=== PATIENT | male | born 1995 | race Caucasian/White ===

== ENCOUNTER 2020-09-26 05:53 | Inpatient (IN) ==
--- NOTE | 2020-09-17 14:38 | PAT Medication Instructions ---
Medication Instructions Date of Service September 17, 2020 Home Medications ascorbic acid (vitamin C) 1,000 mg PO HS linaclotide [Linzess] 72 mcg PO QAM melatonin 5 mg PO HS PRN pantoprazole 40 mg PO QAM DO NOT take the morning of surgery linaclotide [Linzess] 72 mcg PO QAM Take morning of surgery With a small sip of water, OTHERWISE NOTHING TO EAT OR DRINK AFTER MIDNIGHT: pantoprazole 40 mg PO QAM Take evening before surgery ascorbic acid (vitamin C) 1,000 mg PO HS melatonin 5 mg PO HS PRN Other Notes If you have any questions please call us at [phone] or [phone] or [phone] or [phone]
--- NOTE | 2020-09-19 08:17 | Anesthesiology Consultation ---
Date of Service September 19, 2020 Assessment & Plan (1) Encounter for pre-operative examination: COVID Status: As of 09/19 assessment, patient denies travel to endemic area, known exposure/sick contacts, or symptoms of COVID19. Patient was COVID + on 08/05/20. Mild symptoms, all resolved. Explained policy of discontinuation of transmission precautions. Patient instructed that they and their household members must follow strict social distancing guidelines, wear a mask in public and avoid travel/events/gatherings for 14 days prior to surgery. Preoperative COVID19 testing completed 09/19 at [facility]. Patient made aware to self-isolate as much as possible between COVID testing and surgery. Unfortunately he will have to work nearly every day between now and surgery. He works at [employer] and reports the employees are spread out and stay away from each other, have little interaction, and wear masks. Advised to be extra conscientious and especially avoid others when unmasked to eat. Chart Review Chart Review: Acceptable Risk for Surgery and Patient seen in Pre Admission Testing Teaching & Discussion Instructed NPO after midnight before surgery, except medications with 15 cc of water. Medication instructions provided according to the [facility] guidelines. History Surgery Operation Date: 09/26/20 07:30 Proposed Procedures p Robotic Right Partial Nephrectomy Assisted - Carlos Pereyra MD Height/Weight Height: 6 ft Weight: 108.5 kg Allergies Allergy/AdvReac Type Severity Reaction Status Date / Time No Known Allergies Allergy Unverified 09/13/20 08:08 Medications Home Medications Medication Instructions Recorded Confirmed Last Taken ascorbic acid (vitamin C) [Vitamin 1,000 mg PO HS 09/13/20 09/13/20 Unknown C] linaclotide [Linzess] 72 mcg PO QAM 09/13/20 09/13/20 Unknown melatonin 5 mg PO HS PRN 09/13/20 09/13/20 Unknown pantoprazole 40 mg PO QAM 09/13/20 09/13/20 Unknown Past Medical History Medical History Asthma as a child -- no problems currently. Gastritis History of COVID-19 tested 08/05/20 at [facility] --> loss of smell and taste, mild sob for 1 day. no other symptoms. no hospitalization. no problems currently. Irritable bowel syndrome with constipation Exercise / Class Metabolic Activity II 4-5 Yardwork/Stairs/Walk up hill Past Family History Family History Father Pancreatic cancer Other No family history of adverse response to anesthesia Denies family history of Crohn's disease Colorectal cancer Ulcerative colitis Past Surgical History Surgical History H/O colonoscopy (~2015) Dr. Espinal at [facility] History of esophagogastroduodenoscopy (EGD) [place] teeth extracted Past Anesthesia History No Hx of Anesthesia Complications and No Family Hx of Anesthesia Complications History of PONV No Hx of PONV and No Hx of Motion Sickness Social History Smoking Status: Former smoker tobacco type: cigarettes and smokeless tobacco Do You Dip or Chew Tobacco: Yes (nicotine pouches daily (advised)) Smoking End Date: 2018 Hx Alcohol Use: Yes (social) alcohol intake frequency: a few times a month Hx Substance Use: No substance use type: does not use Review of Systems Pt denies any recent chest pain, shortness of breath, palpitations, cough, fever, URI, or uncontrolled acid reflux. Physical Exam Vital Signs BP: 119/81 P: 85bpm SPO2: 98% RA T: 99.0 F R: 12 ENMT Mouth: + chipped teeth; no dental restorations and no loose teeth Thyromental Distance: > or= 3.5 Finger Breadths Mallampati Class: I Neck normal visual inspection and + facial hair (medium length barrientos, pt amenable to shaving); neck extension not limited Respiratory normal respiratory effort, lungs clear to auscultation Cardiovascular RRR, no murmur, no edema Testing Laboratory Results 09/19/20 08:34 09/19/20 08:34 Urine Color Yellow 09/19/20 08:34 Urine Appearance Clear (Clear) 09/19/20 08:34 Urine pH 7.0 (4.5-7.5) 09/19/20 08:34 Ur Specific [place] 1.021 (1.000-1.030) 09/19/20 08:34 Urine Protein Negative (Negative) 09/19/20 08:34 Urine Glucose (UA) Negative (Negative) 09/19/20 08:34 Urine Ketones Negative (Negative) 09/19/20 08:34 Urine Nitrite Negative (Negative) 09/19/20 08:34 Ur Leukocyte Esterase Negative (Negative) 09/19/20 08:34 Blood Type A Negative 09/19/20 08:34 Antibody Screen NEGATIVE 09/19/20 08:34 Electrocardiogram Date: 09/19/20 Findings: + NSR @ (76bpm) and + no change from (2010) Chest X-Ray Date: 09/19/20 Findings: + NAD
[2020-09-19 09:17] LABS: Basophils # (auto) 0.01 K/uL (0-0.2); Basophils % (auto) 0.1 %; Eosinophils # (auto) 0.18 K/uL (0-0.5); Eosinophils % (auto) 2.5 %; Hematocrit (blood only) 44.6 % (42-52); Hemoglobin 15.4 g/dL (14.0-18.0); Immature Granulocytes # (auto) 0.01 K/uL (0.00-0.02); Immature Granulocytes % (auto) 0.1 %; Lymphocytes % (auto) 18.3 %; Mean Corpuscular Hemoglobin 30.6 pg (25-34); Mean Corpuscular Hgb Conc 34.5 g/dL (32-36); Mean Corpuscular Volume 88.5 fL (80-100); Mean Platelet Volume 11.4 fL (7.4-10.4); Monocytes # (auto) 0.63 K/uL (0.11-0.59); Monocytes % (auto) 8.9 %; Neutrophils # (auto) 4.96 K/uL (1.4-6.5); Neutrophils % (auto) 70.1 %; Platelet Count 213 K/uL (130-400); RDW Standard Deviation 41.9 fL (36.4-46.3); Red Blood Count 5.04 M/uL (4.7-6.1); White Blood Count 7.09 K/uL (4.8-10.8)
[2020-09-19 09:20] LABS: Appearance Urine Clear (Clear); Bilirubin Urine Negative (Negative); Blood Urine Negative (Negative); Color Urine Yellow; Glucose Urine UA Negative (Negative); Ketones Urine Negative (Negative); Leukocyte Esterase Urine Negative (Negative); Nitrite Urine Negative (Negative); Protein Urine Negative (Negative); Specific Gravity Urine 1.021 (1.000-1.030); Urobilinogen Urine Negative (Negative)
[2020-09-19 09:24] LABS: BUN Creatinine Ratio 16.9 (10-20); Creatinine Clr Calc Pharmacy 153.5 ml/min; Est GFR (African American) 131.6; Est GFR (Non-African American) 113.6; Potassium 4.3 mmol/L (3.5-5.1)
--- NOTE | 2020-09-19 09:29 | XRay Report ---
XR chest Pre-admission PA/Lat CLINICAL HISTORY: Preoperative chest COMPARISON STUDY: No previous studies for comparison. FINDINGS: The cardiac and mediastinal contours are normal. There is no evidence of focal pulmonary co nsolidation. There is no evidence of failure. No pleural effusions are visualized.[ IMPRESSION: No active disease in the chest. ACT 112: Negative or not required by law. Electronically signed by: Stanton Puente M.D. 09/19/2020 9:28 AM
--- NOTE | 2020-09-20 06:15 | Electrocardiogram Report ---
Test Reason : Blood Pressure : / mmHG Vent. Rate : 076 BPM Atrial Rate : 076 BPM P-R Int : 120 ms QRS Dur : 096 ms QT Int : 368 ms P-R-T Axes : 064 066 045 degrees QTc Int : 414 ms Normal sinus rhythm Normal ECG When compared with ECG of 28-DEC-2010 12:58, No significant change was found Confirmed by Abhishek Robertson ([id number]) on 09/20/2020 6:14:55 AM Referred By: Carlos Pereyra Confirmed By:Abhishek Robertson
[2020-09-26] MEDS ORDERED: ceFAZolin 2000MG 2,000 MG/15 ML SYR IV SCH (06:00)
[2020-09-26] MEDS ORDERED: LACTATED RINGER'S 1,000 ML IV SCH (06:00)
[2020-09-26] MEDS ORDERED: MEPERIDINE HCL 25 MG/ML CARP/VIAL IV PRN (06:59)
[2020-09-26] MEDS ORDERED: ATROPINE SULFATE 0.1 MG/ML 10ML SYR IV PRN (06:59)
[2020-09-26] MEDS ORDERED: LABETALOL HCL IV 5 MG/ML 20ML IV PRN (06:59)
[2020-09-26] MEDS ORDERED: HYDROmorphone INJ 1 MG/ML SYRINGE IV PRN (06:59)
[2020-09-26] MEDS ORDERED: ePHEDrine sulfate 50 MG/ML AMP IV PRN (06:59)
[2020-09-26] MEDS ORDERED: PHENYLEPHRINE 100MCG/ML 5ML SYR IV PRN (06:59)
[2020-09-26] MEDS ORDERED: ONDANSETRON INJ 2 MG/ML 2 ML VIAL IV PRN ×2 (06:59→11:58)
[2020-09-26] MEDS ORDERED: BUPIVACAINE 0.5 % 5 MG/1 ML MPF 30ML VIAL ONE (07:00)
[2020-09-26] MEDS ORDERED: fentaNYL citrate 100 MCG/2 ML VIAL ONE (07:05)
[2020-09-26] MEDS ORDERED: MIDAZOLAM HCL 1 MG/ML 2ML VIAL ONE (07:05)
--- NOTE | 2020-09-26 07:19 | History & Physical Bridge Note ---
Date of Service September 26, 2020 History & Physical Bridge Note I have examined the patient, reviewed the History & Physical and in the interval since the performance of the History & Physical I have noted the following changes of clinical significance: no changes noted
[2020-09-26] MEDS ORDERED: THROMBIN 5000 UNITS KIT ONE (07:49)
[2020-09-26] MEDS ORDERED: HYDROmorphone INJ 2 MG/ML SYR/VIAL ONE (07:56)
[2020-09-26] MEDS ORDERED: ePHEDrine sulfate 50 MG/ML SYR ONE (08:21)
[2020-09-26] MEDS ORDERED: GLYCOPYRROLATE 0.2 MG/ML VIAL ONE (08:21)
[2020-09-26] MEDS ORDERED: ONDANSETRON INJ 2 MG/ML 2 ML VIAL ONE (08:21)
[2020-09-26] MEDS ORDERED: ROCURONIUM BROMIDE 10 MG/ML 5 ML VIAL IV ONE (08:21)
[2020-09-26] MEDS ORDERED: MANNITOL 25% 12.5 GM/50 ML VIAL IV ONE (08:21)
[2020-09-26] MEDS ORDERED: LIDOCAINE 2% 2 ML VIAL/AMP(20MG/ML) INFIL ONE (08:21)
[2020-09-26] MEDS ORDERED: NEOSTIGMINE METHYLSULFATE 5 MG/5 ML SYR ONE (08:21)
[2020-09-26] MEDS ORDERED: PROPOFOL IV EMULSION 10 MG/ML 20 ML VIAL IV ONE (08:21)
[2020-09-26] MEDS ORDERED: PHENYLEPHRINE 100MCG/ML 5ML SYR ONE (08:21)
[2020-09-26] MEDS ORDERED: LARYING-O-JET KIT (LTA) ONE (08:21)
[2020-09-26] MEDS ORDERED: DEXAMETHASONE SOD INJ 4 MG/ML VIAL ONE (08:21)
[2020-09-26] MEDS ORDERED: TISSEEL FIBRIN SEALANT 10ML TOP ONE (09:19)
[2020-09-26] MEDS ORDERED: SURGICEL ABSORB HEMOSTAT 2IN X 14IN TOP ONE (09:19)
[2020-09-26] MEDS ORDERED: FLOSEAL HEMOSTATIC MATRIX 10ML TOP ONE (09:19)
[2020-09-26] MEDS: fentaNYL citrate 100 MCG/2 ML VIAL IV PRN ×4 (10:55→11:10)
--- NOTE | 2020-09-26 10:57 | Operative Report ---
PG Post Operative Report Pre & Post Diagnosis Operation Date: 09/26/20 07:30 Pre-Op Diagnosis: Right Renal Mass Post-Op Diagnosis: Right Renal Mass I identified the patient and participated in the time-out.: Yes Procedure Operation Date: 09/26/20 07:30 Actual Procedures p Right Robotic-Assisted Laparoscopic Partial Nephrectomy(Right) - Carlos Pereyra MD Surgeon Donald Pereyra MD Senior [employer] Applications Developer Nadir Macedo; Kim Bean; Melva Bruner Estimated Blood Loss 25 Findings Consistent with Post-Op Diagnosis Specimens Right renal mass Description of Procedure Patient was identified in the preoperative holding area, appropriate informed consents were reviewed and completed. After transfer to the operating suite he was placed in left side down right side up lateral decubitus position, the bed flexed, and he was padded and braced appropriately. Following sterile prep Veress needle was placed into the right upper quadrant. Insufflation to 15 mmHg was achieved without difficulty. Subsequent entry into the abdomen was conducted utilizing a 12 mm Visiport and 0 degree lens. This was placed in the midline approximately 8 cm above the umbilicus. Inspection revealed no adhesions. Additional port sites were inspected and marked appropriately. I placed 4 robotic ports in a linear fashion beginning with the top port being approximately 2 cm below the costal margin, just lateral to the rectus border. Each subsequent port was 6 cm below the superior port. Placed a 5 mm subxiphoid port for liver retraction. An 8 infraumbilical 12 mm port was placed as well. After docking the robot I incised the white line of Toldt and medialize the colon off of the kidney. This exposed the duodenum which was kocherized. The inferior vena cava was identified above the level of the kidney, I was able to dissect down the anterior surface of the inferior vena cava into the encountered the renal vein. I exposed the circumferentially. I then identified the gonadal vein penetrating into the IVC. I continued to dissect inferior to the kidney and was able to elevate the lower pole of the kidney and placed the hilar structures on stretch. I identified 2 renal arteries. The smaller branch was on the lower side, approximately 2 cm inferior to the vein. The upper branch was immediately posterior to the vein and branched shortly after passing under the IVC. After circumferentially dissecting all of these vascular structures I turned my attention to exposure of the mass. This was an upper pole, posterior mass. I mobilized the liver cephalad. I mobilized the kidney to allow downward retraction. We incised Gerota's fashion and freed the kidney circumferentially in the upper pole. I was able to elevate the mass and visualized a circumferential border of healthy-appearing renal parenchyma where it joined the mass. Laparoscopic ultrasound inspection was conducted confirming the location of the mass and the depth of the mass. Of note, in the medial aspect it was relatively close to the major hilar structures but I felt that there was a safe margin to be able to resect the mass and ultimately close the defect. At that time I preposition 2 sutures into the abdomen and administer 12.5 g of mannitol. We then clamped the main renal artery prior to its division. A second clamp was placed on the smaller inferior renal artery. A third clamp was placed across the vein. Time was marked. The kidney immediately blanched consistent with good clamping. I then incised my previously marked border of the inferior and medial aspect of the mass. I carefully dissected through normal renal parenchyma with care to avoid encroachment upon the mass. We did encounter some sinus fat as well as some collecting system and vascular structures. These were divided sharply. I was able to entirely excise the mass with minimal amounts of renal parenchyma remaining on the medial and inferior side. The mass was placed out of our field of view to allow reapproximation of the defect. This reapproximation was conducted in several layers. The first was with a running 3-0 Vicryl V-Loc suture through the deep aspect of the defect. This closed the collecting system and vascular structures. I then utilized a sliding clip technique with further 2-0 Vicryl V-Loc sutures. This closed the defect very nicely. Approximately 5 passages across the defect were required for full closure. At that time I removed the clamps. We began by removing the venous clamp followed by the 2 arterial clamps. Clamp time was minutes of warm ischemia time. Hemostasis was excellent after clamp removal. As an additional precaution I did place FloSeal and Tisseel over the defect. I then reapproximated some of the perinephric fat utilizing an additional V-Loc suture. The specimen was collected in an Endo Catch bag and ultimately withdrawn through the infraumbilical port. A drain was guided into the right lateral paracolic gutter. The colon was lateralized. The robot was undocked. Midline incisions were closed utilizing 2 layers, the first being a deep 0 Vicryl layer through the fascia followed by 4-0 Monocryl to the skin. The lateral ports were closed with a 4-0 Monocryl alone. All incisions were dressed with Dermabond. The drain was sutured in place. He was subsequently extubated and taken to the PACU in stable condition. There were no complications. Dr. Macedo assisted through the zarate portions of the case, Kim Bean and Melva Bruner assisted from incision to closure. Again warm ischemia time13 minutes. I attest to the content of the Intraoperative Record and any orders documented therein. Any exceptions are noted below.
[2020-09-26 11:18] LABS: Eosinophils # (auto) 0.02 K/uL (0-0.5); Eosinophils % (auto) 0.2 %; Hematocrit (blood only) 40.5 % (42-52); Hemoglobin 14.4 g/dL (14.0-18.0); Immature Granulocytes # (auto) 0.02 K/uL (0.00-0.02); Immature Granulocytes % (auto) 0.2 %; Lymphocytes % (auto) 4.6 %; Mean Corpuscular Volume 87.3 fL (80-100); Mean Platelet Volume 10.6 fL (7.4-10.4); Monocytes # (auto) 0.16 K/uL (0.11-0.59); Monocytes % (auto) 1.5 %; Neutrophils # (auto) 10.08 K/uL (1.4-6.5); Neutrophils % (auto) 93.5 %; Platelet Count 187 K/uL (130-400); RDW Coefficient of Variation 12.7 % (11.5-14.5); RDW Standard Deviation 40.6 fL (36.4-46.3); Red Blood Count 4.64 M/uL (4.7-6.1); White Blood Count 10.78 K/uL (4.8-10.8)
--- NOTE | 2020-09-26 11:34 | Anesthesiology Progress Note ---
Date of Service September 26, 2020 Anesthesia Post Procedure Vital Signs Vital Signs: Temp Pulse Pulse Resp BP BP Pulse Ox 09/26/20 11:20 36.8 C 74 16 123/60 97 09/26/20 11:10 89 16 112/82 95 09/26/20 11:00 99 H 16 133/62 98 09/26/20 10:50 98 H 16 136/79 100 09/26/20 10:43 37.2 C 103 H 17 145/70 H 98 09/26/20 06:23 37.1 C 84 18 142/88 H 99 Pain Intensity Other: Pain Intensity: 3 Right Abdomen: Pain Intensity: 3 Transfer of Care Handoff Completed per policy Notes Mental Status: alert / awake / arousable Patient Amnestic to Procedure: Yes Nausea / Vomiting: adequately controlled Pain: adequately controlled Airway Patency, RR, SpO2: stable & adequate BP & HR: stable & adequate Hydration State: stable & adequate Anesthetic Complications: no major complications apparent and Pt Satisfied with anesthetic care
[2020-09-26 11:36] LABS: BUN Creatinine Ratio 14.2 (10-20); Calcium 8.3 mg/dl (8.5-10.1); Est GFR (African American) 123.5; Est GFR (Non-African American) 106.6; Potassium 4.3 mmol/L (3.5-5.1)
[2020-09-26 11:41] LABS: Mean Corpuscular Hgb Conc 35.6 g/dL (32-36)
[2020-09-26] MEDS ORDERED: MoRPHine SULFATE 2 MG/ML CARP IV PRN (11:58)
[2020-09-26] MEDS ORDERED: MELATONIN 3 MG TAB PO PRN (11:58)
[2020-09-26] MEDS: LACTATED RINGER'S 1,000 ML IV SCH ×2 (12:28→21:47)
[2020-09-26] MEDS: oxyCODONE HCL IR 5 MG TAB (IMMEDIATE RELEASE) PO PRN ×2 (12:51→19:30)
[2020-09-26] MEDS: MoRPHine SULFATE 2 MG/ML CARP IV PRN ×3 (14:12→21:59)
[2020-09-26] MEDS: ceFAZolin 2000MG 2,000 MG/15 ML SYR IV SCH ×2 (17:40→23:55)
[2020-09-26] MEDS: ASCORBIC ACID 500 MG TAB PO SCH (21:46)
[2020-09-27] MEDS: MoRPHine SULFATE 2 MG/ML CARP IV PRN (03:15)
[2020-09-27] MEDS: oxyCODONE HCL IR 5 MG TAB (IMMEDIATE RELEASE) PO PRN ×4 (06:04→20:04)
[2020-09-27] MEDS: LACTATED RINGER'S 1,000 ML IV SCH ×3 (06:04→22:26)
[2020-09-27 06:51] LABS: Basophils # (auto) 0.01 K/uL (0-0.2); Basophils % (auto) 0.1 %; Eosinophils # (auto) 0.02 K/uL (0-0.5); Eosinophils % (auto) 0.2 %; Hematocrit (blood only) 38.1 % (42-52); Hemoglobin 13.3 g/dL (14.0-18.0); Immature Granulocytes # (auto) 0.01 K/uL (0.00-0.02); Immature Granulocytes % (auto) 0.1 %; Lymphocytes # (auto) 1.67 K/uL (1.2-3.4); Lymphocytes % (auto) 16.2 %; Mean Corpuscular Hemoglobin 30.4 pg (25-34); Mean Corpuscular Hgb Conc 34.9 g/dL (32-36); Mean Platelet Volume 10.8 fL (7.4-10.4); Monocytes # (auto) 1.21 K/uL (0.11-0.59); Monocytes % (auto) 11.7 %; Neutrophils % (auto) 71.7 %; Platelet Count 193 K/uL (130-400); RDW Coefficient of Variation 12.7 % (11.5-14.5); RDW Standard Deviation 40.9 fL (36.4-46.3); Red Blood Count 4.38 M/uL (4.7-6.1); White Blood Count 10.32 K/uL (4.8-10.8)
[2020-09-27 07:32] LABS: BUN Creatinine Ratio 9.8 (10-20); Calcium 8.3 mg/dl (8.5-10.1); Creatinine Clr Calc Pharmacy 156.9 ml/min; Est GFR (African American) 135.8; Est GFR (Non-African American) 117.2; Potassium 3.5 mmol/L (3.5-5.1)
--- NOTE | 2020-09-27 08:09 | Urology Progress Note ---
Date of Service September 27, 2020 Assessment & Plan (1) Renal mass: Postop day #1 status post right robotic partial nephrectomy Progressing appropriately Labs appropriate DC Bar[place] If no significant change in drain output can remove drain later today Ambulate Advance diet Possible DC home tomorrow if he progresses appropriately today Admission and Anticipated Discharge Date Admission Date: September 26, 2020 Subjective Subjectively doing well He has some expected postop pain He has been ambulatory within his room His urine is clear No nausea, asking for food Physical Exam Physical Exam: Incisions appropriate Urine clear, LEXY serosanguineous Abdomen soft Results & Data ([facility]) Vital Signs (Past 12 Hours) Vital Signs Temp Pulse Pulse Resp BP BP Pulse Ox 09/27/20 07:12 36.8 C 84 16 102/65 96 09/27/20 03:00 37 C 92 H 16 100/64 95 09/26/20 22:46 37.2 C 93 H 18 110/68 95 PG Care Time/CCT Total # of Minutes Spent Total Time Spent with Patient: Total time spent is greater than 50% in coordination of care (as documented) at patient's floor/unit and/or counseling patient: Coding Level of Care Code 17771 Subseq Hosp Care Lvl 2 Diagnoses Renal mass N28.89
[2020-09-27] MEDS: linaCLOtide 72 MCG CAPSULE PO SCH (09:23)
[2020-09-27] MEDS: PANTOprazole 40 MG TAB PO SCH (09:23)
[2020-09-27] MEDS: ASCORBIC ACID 500 MG TAB PO SCH (20:04)
[2020-09-27] MEDS: ACETAMINOPHEN 325 MG TAB PO PRN (20:07)
[2020-09-28] MEDS: oxyCODONE HCL IR 5 MG TAB (IMMEDIATE RELEASE) PO PRN ×2 (03:44→07:47)
[2020-09-28 06:30] LABS: Basophils # (auto) 0.01 K/uL (0-0.2); Basophils % (auto) 0.1 %; Eosinophils # (auto) 0.02 K/uL (0-0.5); Eosinophils % (auto) 0.2 %; Hematocrit (blood only) 36.7 % (42-52); Hemoglobin 12.8 g/dL (14.0-18.0); Lymphocytes # (auto) 1.25 K/uL (1.2-3.4); Lymphocytes % (auto) 12.2 %; Mean Corpuscular Hemoglobin 30.4 pg (25-34); Mean Corpuscular Hgb Conc 34.9 g/dL (32-36); Mean Corpuscular Volume 87.2 fL (80-100); Monocytes # (auto) 1.22 K/uL (0.11-0.59); Monocytes % (auto) 11.9 %; Neutrophils # (auto) 7.72 K/uL (1.4-6.5); Neutrophils % (auto) 75.6 %; Platelet Count 172 K/uL (130-400); RDW Coefficient of Variation 12.5 % (11.5-14.5); RDW Standard Deviation 40.3 fL (36.4-46.3); Red Blood Count 4.21 M/uL (4.7-6.1); White Blood Count 10.22 K/uL (4.8-10.8)
[2020-09-28 06:57] LABS: BUN Creatinine Ratio 9.6 (10-20); Calcium 8.5 mg/dl (8.5-10.1); Creatinine Clr Calc Pharmacy 186.2 ml/min; Est GFR (African American) 145.7; Est GFR (Non-African American) 125.7; Potassium 3.6 mmol/L (3.5-5.1)
[2020-09-28] MEDS: linaCLOtide 72 MCG CAPSULE PO SCH (07:46)
[2020-09-28] MEDS: PANTOprazole 40 MG TAB PO SCH (07:47)
--- NOTE | 2020-09-28 07:58 | Urology Progress Note ---
Date of Service September 28, 2020 Assessment & Plan (1) Renal mass: Postop day #2 status post right robotic partial nephrectomy Gradually progressing I suspect his low-grade temperatures are related atelectasisstrong encouragement to utilize incentive spirometer If temperatures rise substantially we will culture and perform a full fever work-up but I do not think we need to do so yet Labs appropriate WBC 10.2, creatinine 0.75 Good urine output Seems to be doing better today continue ambulation anticipate d/c home tomorrow Admission and Anticipated Discharge Date Admission Date: September 26, 2020 Subjective fortunately, it seems as though he has turned the corner a bit today feeling much better ambulating tolerating a diet Gradually progressing from his robotic partial nephrectomy earlier this week Catheter removed yesterday, drain removed yesterday Low-grade temperature overnightatelectasis? Overall, still in discomfort but gradually improving He did become dizzy and lightheaded when he tried to stand up and ambulate yesterday Physical Exam Physical Exam: Incisions appropriate Abdomen soft Results & Data ([facility]) Vital Signs (Past 12 Hours) Vital Signs Temp Pulse Resp BP Pulse Ox 09/28/20 07:09 37.2 C 100 H 18 126/75 94 09/27/20 22:13 38.2 C H 101 H 16 112/70 92 09/27/20 20:00 38.3 C H 92 H 16 115/69 96 PG Care Time/CCT Total # of Minutes Spent Total Time Spent with Patient: Total time spent is greater than 50% in coordination of care (as documented) at patient's floor/unit and/or counseling patient: Coding Level of Care Code 61527 Subseq Hosp Care Lvl 2 Diagnoses Renal mass N28.89
[2020-09-28] MEDS: LACTATED RINGER'S 1,000 ML IV SCH ×2 (10:11→10:35)
[2020-09-28] MEDS: ACETAMINOPHEN 325 MG TAB PO PRN (15:54)
[2020-09-28] MEDS: ASCORBIC ACID 500 MG TAB PO SCH (19:52)
[2020-09-29] MEDS: oxyCODONE HCL IR 5 MG TAB (IMMEDIATE RELEASE) PO PRN (05:09)
[2020-09-29] MEDS: LACTATED RINGER'S 1,000 ML IV SCH (05:10)
[2020-09-29 05:56] LABS: Basophils # (auto) 0.01 K/uL (0-0.2); Basophils % (auto) 0.1 %; Eosinophils # (auto) 0.03 K/uL (0-0.5); Eosinophils % (auto) 0.3 %; Hematocrit (blood only) 36.2 % (42-52); Hemoglobin 12.6 g/dL (14.0-18.0); Immature Granulocytes # (auto) 0.01 K/uL (0.00-0.02); Immature Granulocytes % (auto) 0.1 %; Lymphocytes # (auto) 1.16 K/uL (1.2-3.4); Lymphocytes % (auto) 12.2 %; Mean Corpuscular Hemoglobin 30.2 pg (25-34); Mean Corpuscular Hgb Conc 34.8 g/dL (32-36); Mean Corpuscular Volume 86.8 fL (80-100); Mean Platelet Volume 10.9 fL (7.4-10.4); Monocytes # (auto) 1.14 K/uL (0.11-0.59); Monocytes % (auto) 11.9 %; Neutrophils # (auto) 7.19 K/uL (1.4-6.5); Neutrophils % (auto) 75.4 %; Platelet Count 174 K/uL (130-400); RDW Coefficient of Variation 12.5 % (11.5-14.5); Red Blood Count 4.17 M/uL (4.7-6.1); White Blood Count 9.54 K/uL (4.8-10.8)
[2020-09-29 06:30] LABS: Blood Urea Nitrogen 8 mg/dl (7-18); Calcium 8.6 mg/dl (8.5-10.1); Carbon Dioxide 27 mmol/L (21-32); Chloride 103 mmol/L (98-107); Creatinine Clr Calc Pharmacy 221.7 ml/min; Est GFR (African American) > 150.0; Est GFR (Non-African American) 135.1; Glucose 98 mg/dl (70-99); Potassium 3.8 mmol/L (3.5-5.1); Sodium 137 mmol/L (136-145)
[2020-09-29] MEDS: linaCLOtide 72 MCG CAPSULE PO SCH (08:11)
[2020-09-29] MEDS: PANTOprazole 40 MG TAB PO SCH (08:11)
--- NOTE | 2020-09-29 09:47 | Urology Progress Note ---
Date of Service September 29, 2020 Assessment & Plan (1) Renal mass: Status post right robotic partial nephrectomy Progressing appropriately Labs stable vital stable, discharge home today Admission and Anticipated Discharge Date Admission Date: September 26, 2020 Subjective Has progressed well overnight Anxious to go home Labs stable Ambulatory Tolerating a diet No fevers Physical Exam Physical Exam: Incisions appropriate Results & Data ([facility]) Vital Signs (Past 12 Hours) Vital Signs Temp Pulse Pulse Resp BP Pulse Ox 09/29/20 07:52 37.2 C 101 H 18 123/78 97 09/28/20 22:25 37.9 C H 106 H 20 116/75 95 PG Care Time/CCT Total # of Minutes Spent Total Time Spent with Patient: Total time spent is greater than 50% in coordination of care (as documented) at patient's floor/unit and/or counseling patient: Coding Level of Care Code 77988 Subseq Hosp Care Lvl 2 Diagnoses Renal mass N28.89
--- NOTE | 2020-09-29 11:21 | Discharge Summary ---
Date of Service September 29, 2020 Principal Diagnosis Renal masssuspected renal cell carcinoma Discharge Data Allergies Allergy/AdvReac Type Severity Reaction Status Date / Time No Known Allergies Allergy Unverified 09/26/20 06:17 Procedures Performed Operation Date: 09/26/20 07:30 Actual Procedures p Right Robotic-Assisted Laparoscopic Partial Nephrectomy(Right) - Carlos Pereyra MD Hospital Course (1) Renal mass: Status post right robotic partial nephrectomy for suspected renal cell carcinoma Details of the procedure are as dictated previously in the operative report, however in summary he tolerated the procedure very well. His catheter was re moved on postoperative day 1 followed by his drain several hours later. He was ambulatory. He was tolerating a diet. He did have a low-grade temperature on postoperative day #2I suspect this was atelectasis and after utilizing an incentive spirometer he had no recurrence of fevers. He felt well, pain controlled, tolerating a diet prior to discharge home. He was passing flatus but had not yet had a bowel movement. Of note, he has chronic constipation and is medicated for this issue. Pathology was not yet returned at the time of discharge. Total Time Total Time Spent Total Time Spent (In Minutes): 20 Discharge Plan Discharge Items Patient Disposition: Home - Self-Care Reason For Visit: Renal Mass Discharge Diagnosis: Renal mass Activity: Per Instructions section Lifting: No more than 10 pounds Bathing Comment: No tub baths or soaking. Okay to shower tomorrow. Sexual Activity: Wait until after follow-up appointment Exercise/Sports: Wait until after follow-up appointment Driving/Machine Use: Do not drive while taking narcotic pain medication Non-emergency contact: Surgeon and Urologist Call non-emergency contact if: your pain is not controlled, your temperature is above 101, your wound has increased redness, your wound has increased drainage and your wound pain has increased Follow-up/Referrals: Carlos Pereyra MD [Physician] - 10/07/20 8:45 am Soham Gonzalez [Primary Care Provider] - Diet: Regular Addtl Attending Provider Instructions: Please take all medications as prescribed and keep all follow-ups as scheduled. Please call our office at [phone] with any questions, concerns or need to reschedule appointments for any reason. We are happy to assist you. Recovering at home: We recommend having someone with you for the first few days after surgery to help care for you. It is okay to shower tomorrow. Please avoid swimming, bathing or using hot tub until incisions are well healed. Avoid driving until you are not requiring pain medication any further. Walk at least a few times a day. Increase your distance, as you feel able. Stairs in your home are okay. Please avoid strenuous or sexual activity until your follow-up. We recommend using stool softener (i.e. Colace) to prevent constipation and straining, especially the first two weeks post operatively. Call [facility] Urology at [phone] if you experience: Chest pain or trouble breathing (call [phone] or go to the hospital). Fever of 101F or higher Symptoms of infection at incision site, including redness or swelling, warmth, or bad-smelling drainage If you have catheter, and you notice: o Bloody urine or drainage that is dark red or has large clots (Please remember a small amount of blood is normal) o No drainage from the catheter for more than 6 hours o The catheter comes out of your bladder Pain that is not controlled with medicines Pending Studies at Discharge: Yes Studies:: Pathology Stand-Alone Forms: [facility] [employer], Smoking Cessation Medications and DC Order Prescriptions: New oxycodone-acetaminophen [Percocet] 5-325 mg tablet 1 tab PO TID PRN (Reason: pain) Qty: 14 RF: 0 docusate sodium [Colace] 100 mg capsule 100 mg PO BID Qty: 60 RF: 0 Continued ascorbic acid (vitamin C) [Vitamin C] 1,000 mg Tablet 1,000 mg PO HS RF: 0 melatonin 5 mg Tablet 5 mg PO HS PRN (Reason: Sleep) RF: 0 pantoprazole 40 mg tablet,delayed release (DR/EC) 40 mg PO QAM RF: 0 Linzess 72 mcg capsule 72 mcg PO QAM RF: 0 Pro-Ception Supplement 1 cap PO HS RF: 0 Discontinued ibuprofen 200 mg Tablet 200 mg PO Q6H PRN (Reason: Pain) RF: 0 Discharge Orders: Discharge Order (Routine); Ordered 09/29/20 Ordered By: Carlos Pereyra Admission Data Admit Date/Time: 09/26/20 10:46 Attending Provider: Carlos Pereyra Admit Provider: Carlos Pereyra Primary Care Provider: Soham Gonzalez Other Interventions: Discharge Summary Assessment (RN) Last Done: 09/29/20 10:09 Coding Level of Care Code D/C Day Management <30 mins Diagnoses Renal mass N28.89
== END 2020-09-29 11:24 | disposition home or self-care (01) ==
LOC: PAT 05:53 → 3N 10:46

== ENCOUNTER 2024-11-27 09:35 | Inpatient (IN) ==
[2024-11-27] MEDS: ACETAMINOPHEN 1,000 MG/100 ML VIAL IV STA ×2 (11:13→15:13)
[2024-11-27] MEDS: METHOCARBAMOL 500 MG TABLET PO STA ×2 (11:14→15:13)
[2024-11-27] MEDS: LIDOCAINE 5% 1 PATCH TD STA (11:14)
[2024-11-27] MEDS: dexAMETHasone**PF** 10 MG/ML VIAL IV ONE (11:14)
[2024-11-27 11:19] LABS: iSTAT Creatinine 0.9 mg/dl (0.6-1.3); iSTAT Hemoglobin 15.3 g/dl (14.0-18.0); iSTAT Ionized Calcium 1.2 mmol/l (1.12-1.32)
[2024-11-27] MEDS: MoRPHine SULFATE 4 MG/ML 1 ML CARP\\VIAL IV STA ×2 (11:50→17:22)
--- NOTE | 2024-11-27 12:30 | XRay Report ---
XR lumbar spine 2-3V CLINICAL HISTORY: Low back pain. COMPARISON STUDY: Lumbar spine radiographs June 15, 2023. FINDINGS: There is straightening of the lumbar lordosis. Vertebral body heights are maintained. There are no fractures. Disc spaces are preserved. Facet joints are intact. IMPRESSION: No significant abnormality within the lumbar spine. ACT 112: Negative or not required by law. Electronically signed by: Anderson Weiss M.D. 11/27/2024 12:29 PM
[2024-11-27] MEDS: GABAPENTIN 100 MG CAP PO STA (12:52)
[2024-11-27] MEDS: oxyCODONE HCL IR 5 MG TAB (IMMEDIATE RELEASE) PO STA (13:49)
[2024-11-27] MEDS: OPTIRAY 320 100ml IV ONE (14:00)
--- NOTE | 2024-11-27 14:31 | Emergency Department Note ---
Impression & Plan Back pain, Lumbar disc herniation ED Provider Note ED Provider Note NAME: COLLEEN WALKER AGE:29 SEX: Male : 1995 ARRIVES VIA: Private vehicle INFORMANT: Patient ED PROVIDER(s): Myranda Gómez DO CHIEF COMPLAINT: Back pain HPI: This is a 29-year-old male presents emergency department with concern for acute onset low back pain while he was at work. Patient states he was holding a machine stooped over that weighs approximately 30 to 40 pounds. He states he went to stand up and heard a "pop" and felt immediate pain in his central lower back. Patient states he tried to sit down and rest for a while thinking it would resolve however it did not and continued to be painful and made it difficult to walk. No pain radiation into the hips, buttocks, or lower extremities. He denies any accompanying numbness or tingling to the lower extremities or genital region. No incontinence. No radiation of the pain into the abdomen, no nausea or vomiting, no fevers or chills. No prior history of back problems. Patient did previously have renal cell carcinoma and did undergo partial nephrectomy. PAST MEDICAL HISTORY:See Below PAST SURGICAL HISTORY:See Below FAMILY HISTORY:See Below SOCIAL HISTORY:See Below HOME MEDICATIONS:See Below ALLERGIES:See Below VITALS:See Below PHYSICAL EXAMINATION: GENERAL: alert, well appearing, well nourished, no distress, non-toxic EYE EXAM: normal conjunctiva, PERRL and EOM's grossly intact OROPHARYNX: no exudate, no erythema, lips, buccal mucosa, and tongue normal and mucous membranes are moist NECK: supple, no nuchal rigidity, no adenopathy, non-tender LUNGS: Clear to auscultation. Normal chest wall mechanics, no w/r/r HEART: no murmurs, S1 normal and S2 normal ABDOMEN: abdomen soft, non-tender, normo-active bowel sounds, no masses, no rebound or guarding. BACK: Back is symmetrical on inspection and there is no deformity, no midline tenderness SKIN: no rashes, petechiae, orbruising UPPER EXTREMITIES: upper extremities are grossly normal. FROM, nml pulses b/l. LOWER EXTREMITIES: No pitting edema. FROM, nml pulses b/l. NEURO EXAM: Normal sensorium, cranial nerves II-XII grossly intact, normal speech, no facial droop,nogross weakness of arms, no gross weakness of legs. Gross sensation intact. No ataxia. Vital Signs: reviewed and remarkable Differential Diagnosis: lumbar radiculopathy, muscle strain, fracture, cauda equina, mass, disc herniation, UTI, pyelonephritis, ureterolithiasis, AAA, referred pain from other intra-abdominal source, as well as others were considered MEDICAL DECISION MAKING: This is a 29-year-old male presents emergency ferment due to acute onset of low back pain after an incident at work today. Patient was afebrile and hemodynamically stable. He had no neurologic deficits and was neurovascularly intact. No findings concerning for acute cauda equina. No prior history of back problems. A [id number] BMP was drawn and sent and IV established. Patient initially sent for x-rays which were reviewed by me at bedside. Patient started on IV Tylenol, Lidoderm patch applied, and he was given oral Robaxin. Patient had persistent pain. NSAIDs were avoided due to prior history of RCC and partial nephrectomy. Patient's creatinine was within normal range on the [id number] testing. Patient was started on IV fluids additionally. He was given IV Decadron additionally and oral gabapentin due to ongoing pain. In light of his prior history and persistent pain he was sent for CT of the abdomen pelvis and CT lumbar spine. No evidence of recurrent RCC or metastatic disease. He was noted to have a disc extrusion in the lumbar spine which I suspect has caused his symptoms today. Patient given IV morphine additionally as well as additional Robaxin. We did attempt to help the patient stand and ambulate and he had worsening pain to the point of feeling nauseated. After additional bedside discussion on repeat exam, patient does not feel comfortable going home due to level of pain at this time. Case discussed with the hospitalist for additional evaluation and management. Consultation: 1730: Discussed with ANGI Marvin, with [facility] hospitalist team for additional evaluation and management. ER Treatment Provided: See below 1700: Patient initially reported feeling improved and desired discharge. This was arranged however patient went to stand up and had significant return of pain to the point of feeling nauseated and had to lay back down. At this time patient does not feel he can safely go home given the amount of pain he is having. He states his also cannot help him at home as she is very petite. He has no other friends or family to help him at home in the short-term. Diagnostics Interpreted By Me: -Cardiac Monitoring: An order was placed for continuous cardiac monitoring. The monitor shows a rate of 80 with normal sinus rhythm. -Laboratory studies: As stated above and show below. 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 Obesity Irritable bowel syndrome with constipation Medical History Migraine History of COVID-19 Gastritis Renal mass Asthma Surgical History History of partial nephrectomy (~09/26/20) History of esophagogastroduodenoscopy (EGD) H/O colonoscopy (~2015) [place] teeth extracted Family History Father Pancreatic cancer Other No family history of adverse response to anesthesia Denies family history of Crohn's disease Colorectal cancer Ulcerative colitis Social History Smoking Status: Never smoker Tobacco Type: Cigarettes Age Started Using Tobacco: 15; Age Quit Using Tobacco: 23; packs per day: 0.5; Cigarettes Per Day: 0.5PPDx 8 YEARS; Second Hand Exposure: No; Do You Dip or Chew Tobacco: No; Hx Alcohol Use: Yes (social) Alcohol type: beer Alcohol Intake Frequency: Monthly or Less Hx Substance Use: Yes (medical marijuana) Prescribed Medications: Marijuana Preferred Language: Cuban Communication Ability: Effective Visual Impairment: No Limitations Hearing Ability: Normal Vibrator Operator Required: No Beliefs That Will Affect Care: None marital status: Current Living Situation: Spouse and Parent Current Living Situation Comment: and parents current occupational status: employed current occupation: comercial parking lot manager How many Children do You have: 0 Feels Safe at Home: Yes Childhood Exposure to Second-Hand Smoke: No Diet: regular caffeine: Yes during the past year weight has: remained stable Dental Care, Regularly: Yes Physical Activity Frequency: Daily Physical Activity Frequency Comment: work Seatbelt Use: always Sunscreen Use: Yes Assistive Devices: None Allergies Allergies Allergy/AdvReac Type Severity Reaction Status Date / Time No Known Allergies Allergy Verified 08/16/24 08:00 Home Meds Home Medications Medication Instructions Recorded Confirmed dicyclomine 10 mg capsule 10 mg PO UD 11/27/24 11/27/24 Previous Rx's Medication Instructions Recorded scopolamine base 1 mg over 3 days 1 patch transdermal Q3D PRN nausea 02/24/24 transdermal patch and vomiting #4 ea linaclotide 72 mcg capsule 72 mcg PO DAILY #90 caps 08/15/24 (Linzess) gabapentin 100 mg capsule 100 mg PO TID #30 caps 11/27/24 methocarbamol 750 mg tablet 750 mg PO Q8H #30 tabs 11/27/24 oxycodone 5 mg tablet 5 mg PO Q8H PRN pain #10 tabs 11/27/24 Results & Data (ED) Vital Signs Vital Signs - 24 hr 11/27/24 09:44 11/27/24 11:45 11/27/24 14:36 Temperature 37.3 C Temperature Source Oral Pulse Rate 118 H Pulse Rate [Finger] 86 82 Pulse Rhythm Regular Pulse Rhythm [Finger] Regular Pulse Strength Normal Respiratory Rate 18 16 15 Respiratory Effort / Characteristics Non-Labored Spontaneous Non-Labored Spontaneous Respiratory Depth Normal Normal Blood Pressure 170/95 H Blood Pressure [Right Arm] 133/85 136/82 Blood Pressure Mean 120 Blood Pressure Mean [Right Arm] 101 100 Blood Pressure Position Sitting Blood Pressure Position [Right Arm] Sitting Pulse Oximetry 96 96 97 Oxygen Delivery Method Room Air Room Air Room Air Sepsis Recent Fever Within 48 Hours No Sepsis New/Unexplained Change in Mental Status No Sepsis Action Taken by Nursing No Action Required Laboratory Data 11/27/24 17:20 11/27/24 17:20 Lab Results 11/27/24 11/27/24 Range/Units 11:07 17:20 WBC 12.76 H (4.8-10.8) K/ul RBC 5.16 (4.70-6.10) M/uL Hgb 15.2 (14.0-18.0) g/dl POC Hgb 15.3 (14.0-18.0) g/dl Hct 44.1 (42.0-52.0) % POC Hct 45 (42-52) % MCV 85.5 (80.0-100.0) fL MCH 29.5 (25.0-34.0) pg MCHC 34.5 (32.0-36.0) g/dL RDW Std Deviation 38.0 (36.4-46.3) fL RDW Coeff of [place] 12.4 (11.5-14.5) % Plt Count 257 (130-400) K/uL MPV 10.6 (9.4-12.4) fL POC Sodium 140 (135-144) mmol/L Sodium 138 (136-145) mmol/L POC Potassium 4.0 (3.3-5.0) mmol/L Potassium 4.2 (3.5-5.1) mmol/L POC Chloride 102 (101-112) mmol/L Chloride 105 (98-107) mmol/L Carbon Dioxide 27 (21-32) mmol/L POC Total CO2 24 (24-31) mmol/L Anion Gap 6 (3-11) POC Anion Gap 20.0 (16-25) mmol/L POC BUN 17 (7-18) mg/dl BUN 14 (6-23) mg/dl Creatinine 0.90 (0.6-1.4) mg/dl POC Creatinine 0.9 (0.6-1.3) mg/dl Est Cr Clr Drug Dosing 135.7 ml/min eGFR 117.10 BUN/Creatinine Ratio 15.6 (10-20) Glucose 135 H (70-99(Fasting)) mg/dl POC Glucose (other) 104 H (70-99) mg/dl Calcium 8.7 (8.6-10.3) mg/dl POC Ioniz Calcium Ayala 1.20 (1.12-1.32) mmol/l Total Bilirubin 0.7 (0.2-1.0) mg/dl AST 18 (13-39) U/L ALT 15 (7-52) U/L Alkaline Phosphatase 31 L (34-104) U/L Total Protein 6.9 (6.0-8.3) gm/dl Albumin 4.2 (3.4-5.0) gm/dl Globulin 2.7 (2.5-4.0) gm/dl Albumin/Globulin Ratio 1.6 (0.9-2) Administered Medications Discontinued Medications Dexamethasone Sodium Phosphate (DexamethasonePf 10 Mg/Ml Vial) 10 mg IV NOW ONE Stop: 11/27/24 10:50 Last Admin: 11/27/24 11:14 Dose: 10 mg Documented By: PATSY Gabapentin (Gabapentin 100 Mg Cap) 100 mg PO NOW STA Stop: 11/27/24 12:43 Last Admin: 11/27/24 12:52 Dose: 100 mg Documented By: DANIELLE Acetaminophen (Ofirmev) 1,000 mg in 100 mls @ 400 mls/hr IV NOW STA Stop: 11/27/24 11:03 Last Infusion: 11/27/24 11:43 Dose: Infused Documented By: Admin: 11/27/24 11:13 Dose: 400 mls/hr Documented By: PATSY Acetaminophen (Ofirmev) 1,000 mg in 100 mls @ 400 mls/hr IV NOW STA Stop: 11/27/24 14:57 Last Infusion: 11/27/24 17:30 Dose: Infused Documented By: Admin: 11/27/24 15:13 Dose: 400 mls/hr Documented By: DANIELLE Sodium Chloride (Nss) 1,000 mls @ 999 mls/hr IV .Q1H1M ONE Stop: 11/27/24 16:59 Last Infusion: 11/27/24 17:31 Dose: Infused Documented By: Admin: 11/27/24 16:17 Dose: 999 mls/hr Documented By: DANIELLE Ioversol (Optiray 320 100ml) 94 ml IV ONCE ONE Stop: 11/27/24 14:01 Last Admin: 11/27/24 14:00 Dose: 94 ml Documented By: LEIGHTON Lidocaine (Lidocaine 5% 1 Patch) 1 patch TD NOW STA Stop: 11/27/24 10:50 Last Admin: 11/27/24 11:14 Dose: 1 patch Documented By: PATSY Methocarbamol (Methocarbamol 500 Mg Tablet) 500 mg PO NOW STA Stop: 11/27/24 10:50 Last Admin: 11/27/24 11:14 Dose: 500 mg Documented By: PATSY Methocarbamol (Methocarbamol 500 Mg Tablet) 250 mg PO NOW STA Stop: 11/27/24 14:43 Last Admin: 11/27/24 15:13 Dose: 250 mg Documented By: DANIELLE Morphine Sulfate (Morphine Sulfate 4 Mg/Ml 1 Ml Carp\\Vial) 4 mg IV NOW STA Stop: 11/27/24 11:48 Last Admin: 11/27/24 11:50 Dose: 4 mg Documented By: DANIELLE Morphine Sulfate (Morphine Sulfate 4 Mg/Ml 1 Ml Carp\\Vial) 4 mg IV NOW STA Stop: 11/27/24 17:10 Last Admin: 11/27/24 17:22 Dose: 4 mg Documented By: SARKIS Ondansetron HCl (Ondansetron Inj 2 Mg/Ml 2 Ml Vial) 4 mg IV NOW STA Stop: 11/27/24 17:10 Last Admin: 11/27/24 17:21 Dose: 4 mg Documented By: SARKIS Oxycodone HCl (Oxycodone Hcl Ir 5 Mg Tab (Immediate Release)) 5 mg PO NOW STA Stop: 11/27/24 13:27 Last Admin: 11/27/24 13:49 Dose: 5 mg Documented By: DANIELLE Imaging Data Radiologist's Impression: Lumbar Spine X-Ray 11/27/24 10:49 XR lumbar spine 2-3V CLINICAL HISTORY: Low back pain. COMPARISON STUDY: Lumbar spine radiographs June 15, 2023. FINDINGS: There is straightening of the lumbar lordosis. Vertebral body heights are maintained. There are no fractures. Disc spaces are preserved. Facet joints are intact. IMPRESSION: No significant abnormality within the lumbar spine. ACT 112: Negative or not required by law. Electronically signed by: Anderson Weiss M.D. 11/27/2024 12:29 PM Abdomen/Pelvis CT 11/27/24 13:[address] WITH IV CONTRAST; CT LUMBAR SPINE WITH IV CONTRAST CT DOSE: 1485.96 mGy.cm HISTORY: Acute pain in the right flank and low back. Sided partial nephrectomy back pain, hx RCC TECHNIQUE: Multiaxial CT images of the abdomen, pelvis and lumbar spine were performed following the IV administration of 94 cc of Optiray, A dose lowering technique was utilized adhering to the principles of ALARA. COMPARISON STUDY: Lumbar spine radiographs of same day, CT abdomen and pelvis 09/01/2023 FINDINGS: CT ABDOMEN/PELVIS: Mild dependent subsegmental bibasilar atelectasis. There is no pneumatosis or pneumoperitoneum. Unremarkable spleen, pancreas, gallbladder, adrenal glands and liver. There is patency of the hepatic and portal veins. Subcentimeter calcification of the hepatic dome. Partial nephrectomy changes of the superior pole right kidney are again noted. No urolith or hydronephrosis. Unremarkable urinary bladder. The aorta and IVC are within normal limits. No lymphadenopathy. No bowel obstruction or bowel wall thickening. Noninflamed appendix. NO ACUTE FRACTURE. CT LUMBAR SPINE: No acute fracture, subluxation, osseous erosion or marrow replacing process. L2-L3: Tiny posterior annular disc bulge. No central canal or foraminal narrowing. L3-L4: 1.3 x 0.6 x 1.8 cm left paracentral/left lateral recess disc extrusion. Moderate central canal and left lateral recess narrowing. Mild bilateral foraminal stenosis. L4-L5: Small posterior annular disc bulge with ligamentum flavum thickening and mild to moderate facet arthrosis. Mild central canal and bilateral foraminal narrowing. L5-S1: Small posterior annular disc bulge with [id number] facet arthrosis. No central canal or foraminal narrowing. IMPRESSION: 1. No acute intra-abdominal or intrapelvic abnormality. 2. Right partial nephrectomy changes redemonstrated. 3. No lymphadenopathy or evidence of metastatic disease. 4. Annular disc bulging of the lumbar spine, most pronounced at L3-L4 where there is a left paracentral/left lateral recess disc extrusion. ACT 112: Negative or not required by law. The above report was generated using voice recognition software. It may contain grammatical, syntax or spelling errors. Electronically signed by: Manpreet Loyola M.D. 11/27/2024 2:[address] 11/27/24 13:[address] WITH IV CONTRAST; CT LUMBAR SPINE WITH IV CONTRAST CT DOSE: 1485.96 mGy.cm HISTORY: Acute pain in the right flank and low back. Sided partial nephrectomy back pain, hx RCC TECHNIQUE: Multiaxial CT images of the abdomen, pelvis and lumbar spine were performed following the IV administration of 94 cc of Optiray, A dose lowering technique was utilized adhering to the principles of ALARA. COMPARISON STUDY: Lumbar spine radiographs of same day, CT abdomen and pelvis 09/01/2023 FINDINGS: CT ABDOMEN/PELVIS: Mild dependent subsegmental bibasilar atelectasis. There is no pneumatosis or pneumoperitoneum. Unremarkable spleen, pancreas, gallbladder, adrenal glands and liver. There is patency of the hepatic and portal veins. Subcentimeter calcification of the hepatic dome. Partial nephrectomy changes of the superior pole right kidney are again noted. No urolith or hydronephrosis. Unremarkable urinary bladder. The aorta and IVC are within normal limits. No lymphadenopathy. No bowel obstruction or bowel wall thickening. Noninflamed appendix. NO ACUTE FRACTURE. CT LUMBAR SPINE: No acute fracture, subluxation, osseous erosion or marrow replacing process. L2-L3: Tiny posterior annular disc bulge. No central canal or foraminal narrowing. L3-L4: 1.3 x 0.6 x 1.8 cm left paracentral/left lateral recess disc extrusion. Moderate central canal and left lateral recess narrowing. Mild bilateral foraminal stenosis. L4-L5: Small posterior annular disc bulge with ligamentum flavum thickening and mild to moderate facet arthrosis. Mild central canal and bilateral foraminal narrowing. L5-S1: Small posterior annular disc bulge with [id number] facet arthrosis. No central canal or foraminal narrowing. IMPRESSION: 1. No acute intra-abdominal or intrapelvic abnormality. 2. Right partial nephrectomy changes redemonstrated. 3. No lymphadenopathy or evidence of metastatic disease. 4. Annular disc bulging of the lumbar spine, most pronounced at L3-L4 where there is a left paracentral/left lateral recess disc extrusion. ACT 112: Negative or not required by law. The above report was generated using voice recognition software. It may contain grammatical, syntax or spelling errors. Electronically signed by: Manpreet Loyola M.D. 11/27/2024 2:32 PM Discharge Plan Visit Data Chief Complaint: Back Injury/Pain Stated Complaint: LOW BACK PAIN ED Provider: Myranda Gómez Discharge Problem: Back pain, Lumbar disc herniation Patient Disposition: Home - Self-Care Condition: Good Discharge Instructions Krayohan/Other Patient Handouts: Common Spine and Disk Problems, ED Back Care Tips Activity Restrictions/Additional Instructions: Please use the medications as prescribed including the muscle relaxer and pain medication. Do not take the muscle relaxer and pain medications simultaneously as they can cause dizziness and drowsiness. Do not take the muscle relaxer and pain medication and drive or consume alcohol. You may continue using Tylenol additionally and applying the topical lidocaine pain patches which are sold [id number] under the brand name Salonpas. Please avoid any bending or stooping, twisting, or lifting more than 5 pounds. Please call and follow-up with your employee health/human resources at your job as this occurred at work. Pending their instructions please follow-up with your family doctor and/or the credentialing specialist listed below for further evaluation given the disc extrusion that was noted on the CT. If you develop worsening pain, numbness or tingling down the legs, numbness or tingling in the genital region, incontinence of urine or stool, fevers, abdominal pain, vomiting, or you have any other new concerns, please return to the ER immediately. Forms Stand Alone Forms: Work/School Release (ED), My [facility], Important Visit Information Prescriptions Prescriptions: New methocarbamol 750 mg tablet 750 mg PO Q8H Qty: 30 0RF oxycodone 5 mg tablet 5 mg PO Q8H PRN (Reason: pain) Qty: 10 0RF gabapentin 100 mg capsule 100 mg PO TID Qty: 30 0RF No Action scopolamine base 1 mg over 3 days patch 3 day 1 patch transdermal Q3D PRN (Reason: nausea and vomiting) Qty: 4 0RF Rx Instructions: last filled 03/20/24 Linzess 72 mcg capsule 72 mcg PO DAILY Qty: 90 3RF Rx Instructions: last filled 08/16 90 day supply dicyclomine 10 mg capsule 10 mg PO UD Rx Instructions: 10 mg po bid. last filled 08/15/24 30 day supply Referrals Referrals: Michael Childers CRNP [Primary Care Provider] - (2-3 days) Reinaldo Taylor DO [Surgeon] - (Local credentialing specialist)
[2024-11-27] MEDS: SODIUM CHLORIDE 0.9% 1,000 ML IV ONE (16:17)
[2024-11-27] MEDS: ONDANSETRON INJ 2 MG/ML 2 ML VIAL IV STA (17:21)
[2024-11-27 17:38] LABS: Hematocrit (blood only) 44.1 % (42.0-52.0); Hemoglobin 15.2 g/dl (14.0-18.0); Mean Corpuscular Hemoglobin 29.5 pg (25.0-34.0); Mean Corpuscular Hgb Conc 34.5 g/dL (32.0-36.0); Mean Corpuscular Volume 85.5 fL (80.0-100.0); Mean Platelet Volume 10.6 fL (9.4-12.4); Platelet Count 257 K/uL (130-400); RDW Coefficient of Variation 12.4 % (11.5-14.5); Red Blood Count 5.16 M/uL (4.70-6.10); White Blood Count 12.76 K/ul (4.8-10.8)
[2024-11-27 17:57] LABS: Albumin Globulin Ratio 1.6 (0.9-2); Albumin Level 4.2 gm/dl (3.4-5.0); BUN Creatinine Ratio 15.6 (10-20); Bilirubin,Total 0.7 mg/dl (0.2-1.0); Calcium 8.7 mg/dl (8.6-10.3); Creatinine Clr Calc Pharmacy 135.7 ml/min; Globulin 2.7 gm/dl (2.5-4.0); Potassium 4.2 mmol/L (3.5-5.1); Total Protein 6.9 gm/dl (6.0-8.3)
--- NOTE | 2024-11-27 18:01 | History & Physical Report ---
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 He presented on 11/27 for acute onset low back pain while he was at work. He was reportedly holding a heavy machine (30-40 lb) and when he stood up, he heard a "pop" and felt immediate pain localized to his central lower back. He tried to rest after this, but it continued to worsen and it became difficult to walk. No radiating symptoms to his hips, buttocks, lower extremities, or abdomen. No paresthesias in his lower extremities or genital region. No urinary incontinence. Lumbar CT revealed annular disc bulging of the lumbar spine, most pronounced at L3-L4 where there is a left paracentral/left lateral recess disc extrusion. #Lumbar disc herniation Pain regimen: Scheduled Tylenol 1,000 mg Q8H, oxycodone 5 mg Q6H PRN moderate pain, Toradol 15 mg IV Q6H PRN moderate pain, Morphine 4 mg IV Q4H PRN severe pain Continue Lidocaine patch to lumbar spine Start Valium 2 mg TID PRN muscle spasms PT/OT consulted Consider ortho spine consult if pain is not controlled conservatively #History of chromophobe RCC, s/p right partial nephrectomy - follows with [facility], Dr. Pereyra CT A/P with no acute intra-abdominal or intrapelvic abnormality. No lymphadenopathy or evidence of metastatic disease Cr on admission at baseline of 0.9 Cautious use of NSAIDs given history of partial nephrectomy #Class II Obesity Elevated non-fasting BSG Check A1c with AM labs #GERD Previously took Protonix, however has not had a prescription for months and has been asymptomatic Will provide Protonix 40 mg daily while hospitalized #IBS-C - follows with [facility] Continue Linzess 72 mcg daily VTE PPx: low risk. Add if prolonged inpatient stay CODE STATUS: Full code History of Present Illness Chief Complaint: Lower back pain Primary Care Provider: TESS Jackson Mason is a pleasant 29 year old male with PMH including chromophobe renal cell carcinoma s/p right robotic partial nephrectomy September 2020, IBS-C, GERD. He presented on 11/27 for acute onset low back pain while he was at work. He was reportedly holding a heavy machine (30-40 lb) and when he stood up, he heard a "pop" and felt immediate pain localized to his central lower back. He tried to rest after this, but it continued to worsen and it became difficult to walk. He currently rates his pain 3/10 when lying at rest, but 8/10 with movement including transferring to sit or stand, ambulating, or prolonged standing. No radiating symptoms to his hips, buttocks, lower extremities, or abdomen. No paresthesias in his lower extremities or genital region. No urinary incontinence. Vital signs stable, labs unremarkable. Lumbar CT revealed annular disc bulging of the lumbar spine, most pronounced at L3-L4 where there is a left paracentral/left lateral recess disc extrusion. No recent changes in his home medications. When asked about his history of lower back pain and bilateral knee pain, he reports the lower back pain is totally different than what is he experiencing now and his LBP in the past was secondary to constipation. 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 He wishes to be a full code. Allergies Allergy/AdvReac Type Severity Reaction Status Date / Time No Known Allergies Allergy Verified 08/16/24 08:00 Home Medications Medication Instructions Recorded Confirmed Type scopolamine base 1 mg over 3 days 1 patch transdermal Q3D PRN nausea 02/24/24 11/27/24 Rx transdermal patch and vomiting #4 ea linaclotide 72 mcg capsule 72 mcg PO DAILY #90 caps 08/15/24 11/27/24 Rx (Linzess) dicyclomine 10 mg capsule 10 mg PO UD 11/27/24 11/27/24 History gabapentin 100 mg capsule 100 mg PO TID #30 caps 11/27/24 Rx methocarbamol 750 mg tablet 750 mg PO Q8H #30 tabs 11/27/24 Rx oxycodone 5 mg tablet 5 mg PO Q8H PRN pain #10 tabs 11/27/24 Rx Past Med/Surg History Problem List (Updated 11/27/24 @ 17:42 by Shavonne Mcgregor PA-C) GERD (gastroesophageal reflux disease) Lumbar disc herniation (Acute) Back pain (Acute) Renal mass right partial nephrectomy 09/26/20 Abdominal pain Change in bowel habit Flank pain Umbilical hernia Erosive gastritis Insomnia 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 Chromophobe renal cell carcinoma Obesity Irritable bowel syndrome with constipation Medical History Migraine History of COVID-19 Gastritis Renal mass Asthma Surgical History History of partial nephrectomy (~09/26/20) History of esophagogastroduodenoscopy (EGD) H/O colonoscopy (~2015) [place] teeth extracted Family History Father Pancreatic cancer Other No family history of adverse response to anesthesia Denies family history of Crohn's disease Colorectal cancer Ulcerative colitis Social History Smoking Status: Never smoker Tobacco Type: Cigarettes Age Started Using Tobacco: 15; Age Quit Using Tobacco: 23; packs per day: 0.5; Cigarettes Per Day: 0.5PPDx 8 YEARS; Second Hand Exposure: No; Do You Dip or Chew Tobacco: No; Hx Alcohol Use: Yes (social) Alcohol type: beer Alcohol Intake Frequency: Monthly or Less Hx Substance Use: Yes (medical marijuana) Prescribed Medications: Marijuana Preferred Language: Setswana Communication Ability: Effective Visual Impairment: No Limitations Hearing Ability: Normal Printer Slotter Operator Required: No Beliefs That Will Affect Care: None marital status: Current Living Situation: Spouse and Parent Current Living Situation Comment: and parents current occupational status: employed 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 Skin: The skin was without rashes, erythema, edema, or bruising. Cardiac: Regular rate and rhythm without murmurs gallops or rubs. Pulm: Clear to auscultation bilaterally without wheezes, rales or rhonchi. Normal respiratory effort. 97% on room air. Abdominal: Positive bowel sounds x 4. Soft, nontender, without masses or organomegaly. No guarding or rebound tenderness. Neuro: A&O x3. No focal neurological deficits. MSK: LE active and passive ROM normal though elicits pain. Straight leg raise negative for radicular symptoms; pain localized to lumbar region only. Normal sensation of LE bilaterally. Deferred gait testing and lumbar spine palpation per patient's request. Results & Data Results & Data Vital Signs (Past 12 Hours) Vital Signs Temp Pulse Pulse Resp BP BP Pulse Ox 11/27/24 14:36 82 15 136/82 97 11/27/24 11:45 86 16 133/85 96 11/27/24 09:44 99.1 F 118 H 18 170/95 H 96 O2 Del Method 11/27/24 14:36 Room Air 11/27/24 11:45 Room Air 11/27/24 09:44 Room Air Laboratory Results Reviewed CBC Reviewed CMP Diagnostic Findings Reviewed lumbar spine x-ray Reviewed lumbar spine CT Reviewed CT A/P Lumbar Spine X-Ray 11/27/24 10:49 XR lumbar spine 2-3V CLINICAL HISTORY: Low back pain. COMPARISON STUDY: Lumbar spine radiographs June 15, 2023. FINDINGS: There is straightening of the lumbar lordosis. Vertebral body heights are maintained. There are no fractures. Disc spaces are preserved. Facet joints are intact. IMPRESSION: No significant abnormality within the lumbar spine. ACT 112: Negative or not required by law. Electronically signed by: Anderson Weiss M.D. 11/27/2024 12:29 PM Abdomen/Pelvis CT 11/27/24 13:[address] WITH IV CONTRAST; CT LUMBAR SPINE WITH IV CONTRAST CT DOSE: 1485.96 mGy.cm HISTORY: Acute pain in the right flank and low back. Sided partial nephrectomy back pain, hx RCC TECHNIQUE: Multiaxial CT images of the abdomen, pelvis and lumbar spine were performed following the IV administration of 94 cc of Optiray, A dose lowering technique was utilized adhering to the principles of ALARA. COMPARISON STUDY: Lumbar spine radiographs of same day, CT abdomen and pelvis 09/01/2023 FINDINGS: CT ABDOMEN/PELVIS: Mild dependent subsegmental bibasilar atelectasis. There is no pneumatosis or pneumoperitoneum. Unremarkable spleen, pancreas, gallbladder, adrenal glands and liver. There is patency of the hepatic and portal veins. Subcentimeter calcification of the hepatic dome. Partial nephrectomy changes of the superior pole right kidney are again noted. No urolith or hydronephrosis. Unremarkable urinary bladder. The aorta and IVC are within normal limits. No lymphadenopathy. No bowel obstruction or bowel wall thickening. Noninflamed appendix. NO ACUTE FRACTURE. CT LUMBAR SPINE: No acute fracture, subluxation, osseous erosion or marrow replacing process. L2-L3: Tiny posterior annular disc bulge. No central canal or foraminal narrowing. L3-L4: 1.3 x 0.6 x 1.8 cm left paracentral/left lateral recess disc extrusion. Moderate central canal and left lateral recess narrowing. Mild bilateral foraminal stenosis. L4-L5: Small posterior annular disc bulge with ligamentum flavum thickening and mild to moderate facet arthrosis. Mild central canal and bilateral foraminal narrowing. L5-S1: Small posterior annular disc bulge with [id number] facet arthrosis. No central canal or foraminal narrowing. IMPRESSION: 1. No acute intra-abdominal or intrapelvic abnormality. 2. Right partial nephrectomy changes redemonstrated. 3. No lymphadenopathy or evidence of metastatic disease. 4. Annular disc bulging of the lumbar spine, most pronounced at L3-L4 where there is a left paracentral/left lateral recess disc extrusion. ACT 112: Negative or not required by law. The above report was generated using voice recognition software. It may contain grammatical, syntax or spelling errors. Electronically signed by: Manpreet Loyola M.D. 11/27/2024 2:[address] 11/27/24 13:[address] WITH IV CONTRAST; CT LUMBAR SPINE WITH IV CONTRAST CT DOSE: 1485.96 mGy.cm HISTORY: Acute pain in the right flank and low back. Sided partial nephrectomy back pain, hx RCC TECHNIQUE: Multiaxial CT images of the abdomen, pelvis and lumbar spine were performed following the IV administration of 94 cc of Optiray, A dose lowering technique was utilized adhering to the principles of ALARA. COMPARISON STUDY: Lumbar spine radiographs of same day, CT abdomen and pelvis 09/01/2023 FINDINGS: CT ABDOMEN/PELVIS: Mild dependent subsegmental bibasilar atelectasis. There is no pneumatosis or pneumoperitoneum. Unremarkable spleen, pancreas, gallbladder, adrenal glands and liver. There is patency of the hepatic and portal veins. Subcentimeter calcification of the hepatic dome. Partial nephrectomy changes of the superior pole right kidney are again noted. No urolith or hydronephrosis. Unremarkable urinary bladder. The aorta and IVC ar e within normal limits. No lymphadenopathy. No bowel obstruction or bowel wall thickening. Noninflamed appendix. NO ACUTE FRACTURE. CT LUMBAR SPINE: No acute fracture, subluxation, osseous erosion or marrow replacing process. L2-L3: Tiny posterior annular disc bulge. No central canal or foraminal narrowing. L3-L4: 1.3 x 0.6 x 1.8 cm left paracentral/left lateral recess disc extrusion. Moderate central canal and left lateral recess narrowing. Mild bilateral foraminal stenosis. L4-L5: Small posterior annular disc bulge with ligamentum flavum thickening and mild to moderate facet arthrosis. Mild central canal and bilateral foraminal narrowing. L5-S1: Small posterior annular disc bulge with [id number] facet arthrosis. No central canal or foraminal narrowing. IMPRESSION: 1. No acute intra-abdominal or intrapelvic abnormality. 2. Right partial nephrectomy changes redemonstrated. 3. No lymphadenopathy or evidence of metastatic disease. 4. Annular disc bulging of the lumbar spine, most pronounced at L3-L4 where there is a left paracentral/left lateral recess disc extrusion. ACT 112: Negative or not required by law. The above report was generated using voice recognition software. It may contain grammatical, syntax or spelling errors. Electronically signed by: Manpreet Loyola M.D. 11/27/2024 2:32 PM Supervising Physician Co-Signing Physician Notes I personally examined the patient and verified all zarate points of history and exam, discussed case, and agree with decision making with Filiberto Mcgregor PA-C lifting something at work, felt a pop, immediate excruciating back painthe worst pain he is ever felt in his life. Now pain is under better control, but whenever he moves or tries to stand up it gets back to severely intense again. Vitals noted, in general he is awake and alert pleasant no distress. HEENT normocephalic atraumatic mucous membranes moist. Breathing unlabored no accessory muscle use good effort. Skin shows no rashes no pallor or icterus. Mental status shows good recent and remote recall normal mood and affect good judgment and insight. Exam fully otherwise as above. Labs and diagnostics noted. Intractable back painseems to fit quite well with his disc bulge and extrusion. While he does have severe pain, fortunately he has no other worry symptoms. Discussed that with disc extrusion the chance of requiring surgery is rather high, but with his overall appearance, starting with conservative care and seeing how he does with pain control and time is not unreasonable. He appreciates this approach. Multimodal pain control, PT/OT. If it is clear that we are making no headway, or if it is clear that he keeps hitting a ceiling (such as reasonable pain control at rest but unable to move) then we will ask spine surgery to evaluate. otherwise as above PG Care Time/CCT Total # of Minutes Spent Total Time Spent with Patient: Total time spent is greater than 50% in coordination of care (as documented) at patient's floor/unit and/or counseling patient: Coding Level of Care Code 13035 INT INP/OBS CARE MIN Diagnoses Lumbar disc herniation M51.26 History of partial nephrectomy Z90.5 GERD (gastroesophageal reflux disease) K21.9 Irritable bowel syndrome with constipation K58.1
[2024-11-27 18:06] LABS: Basophils # (auto) 0.01 K/uL (0.00-0.20); Basophils % (auto) 0.1 %; Immature Granulocytes # (auto) 0.07 K/uL (0.01-0.20); Immature Granulocytes % (auto) 0.5 %; Lymphocytes # (auto) 0.46 K/uL (1.20-3.40); Lymphocytes % (auto) 3.6 %; Monocytes # (auto) 0.04 K/uL (0.11-0.59); Monocytes % (auto) 0.3 %; Neutrophils # (auto) 12.18 K/uL (1.40-6.50); Neutrophils % (auto) 95.5 %
[2024-11-27] MEDS: oxyCODONE HCL IR 5 MG TAB (IMMEDIATE RELEASE) PO PRN (19:53)
[2024-11-27] MEDS: ACETAMINOPHEN 500 MG TAB PO SCH (20:17)
[2024-11-27] MEDS: diazePAM 2 MG TABLET PO PRN (23:43)
[2024-11-28] MEDS: MoRPHine SULFATE 4 MG/ML 1 ML CARP\\VIAL IV PRN (01:37)
[2024-11-28 04:20] LABS: Basophils # (auto) 0.01 K/uL (0.00-0.20); Basophils % (auto) 0.1 %; Hematocrit (blood only) 42.9 % (42.0-52.0); Hemoglobin 14.8 g/dl (14.0-18.0); Immature Granulocytes # (auto) 0.04 K/uL (0.01-0.20); Immature Granulocytes % (auto) 0.3 %; Lymphocytes # (auto) 1.11 K/uL (1.20-3.40); Lymphocytes % (auto) 9.3 %; Mean Corpuscular Hemoglobin 29.7 pg (25.0-34.0); Mean Corpuscular Hgb Conc 34.5 g/dL (32.0-36.0); Mean Platelet Volume 10.7 fL (9.4-12.4); Monocytes # (auto) 0.58 K/uL (0.11-0.59); Monocytes % (auto) 4.8 %; Neutrophils # (auto) 10.24 K/uL (1.40-6.50); Neutrophils % (auto) 85.5 %; Platelet Count 264 K/uL (130-400); RDW Coefficient of Variation 12.5 % (11.5-14.5); RDW Standard Deviation 38.9 fL (36.4-46.3); Red Blood Count 4.99 M/uL (4.70-6.10); White Blood Count 11.98 K/ul (4.8-10.8)
[2024-11-28 04:34] LABS: Albumin Globulin Ratio 1.5 (0.9-2); Albumin Level 4.1 gm/dl (3.4-5.0); BUN Creatinine Ratio 21.3 (10-20); Bilirubin,Total 0.9 mg/dl (0.2-1.0); Calcium 8.7 mg/dl (8.6-10.3); Globulin 2.8 gm/dl (2.5-4.0); Potassium 4.2 mmol/L (3.5-5.1); Total Protein 6.9 gm/dl (6.0-8.3)
[2024-11-28] MEDS: LIDOCAINE 5% 1 PATCH TD SCH (07:27)
[2024-11-28] MEDS: linaCLOtide 72 MCG CAPSULE PO SCH (07:32)
[2024-11-28 08:21] LABS: Estimated Average Glucose 91 mg/dl; Hemoglobin A1C 4.8 % (4.5-5.6)
[2024-11-28] MEDS: PANTOprazole 40 MG TAB PO SCH (10:02)
--- NOTE | 2024-11-28 11:57 | Consultation ---
Date of Consultation November 28, 2024 Assessment & Plan (1) Back pain: This is a 29-year-old gentleman with acute onset of back pain 24 hours ago from an injury sustained at work. In order to perform a more definitive treatment plan, we need an MRI of the lumbar spine without contrast. I have ordered this. Once this has been reviewed, we will do formulate a plan based on what it shows. All questions were answered in detail. He is comfortable with moving forward with MRI History of Present Illness Reason for Consultation: Back pain Attending Physician: Antony Schwartz, DO History of Present Illness Is a pleasant 29-year-old gentleman who was injured at work yesterday. He works at [employer] and was wrapping up some vehicle batteries and felt a pop and had severe back pain. He presented straight to the emergency room where he was subsequently admitted. Today he has complaints of lower back pain only. It is quite severe. No radicular pain, paresthesia, numbness or weakness. Denies any bowel or bladder dysfunction or perineal numbness. Denies any prior history of lower back issues Allergies Allergy/AdvReac Type Severity Reaction Status Date / Time No Known Allergies Allergy Verified 08/16/24 08:00 Home Medications Medication Instructions Recorded Confirmed Type scopolamine base 1 mg over 3 days 1 patch transdermal Q3D PRN nausea 02/24/24 11/27/24 Rx transdermal patch and vomiting #4 ea linaclotide 72 mcg capsule 72 mcg PO DAILY #90 caps 08/15/24 11/27/24 Rx (Linzess) dicyclomine 10 mg capsule 10 mg PO UD 11/27/24 11/27/24 History gabapentin 100 mg capsule 100 mg PO TID #30 caps 11/27/24 Rx methocarbamol 750 mg tablet 750 mg PO Q8H #30 tabs 11/27/24 Rx oxycodone 5 mg tablet 5 mg PO Q8H PRN pain #10 tabs 11/27/24 Rx Patient History Medical History Migraine History of COVID-19 tested 08/05/20 at [facility] --> loss of smell and taste, mild sob for 1 day. no other symptoms. no hospitalization. no problems currently. Gastritis Asthma as a child -- no problems currently. Surgical History History of partial nephrectomy (~09/26/20) right robotic lap partial nephrectomy History of esophagogastroduodenoscopy (EGD) H/O colonoscopy (~2015) Dr. Espinal at [facility] [place] teeth extracted Family History Father Pancreatic cancer Other No family history of adverse response to anesthesia Denies family history of Crohn's disease Colorectal cancer Ulcerative colitis Social History Smoking Status: Never smoker Age Started Using Tobacco: 15; Age Quit Using Tobacco: 23; packs per day: 0.5; Second Hand Exposure: No; Do You Dip or Chew Tobacco: No; Hx Alcohol Use: Yes (social) Alcohol type: beer Alcohol Intake Frequency: Monthly or Less Hx Substance Use: Yes (medical marijuana) Prescribed Medications: Marijuana Preferred Language: Sammarinese Communication Ability: Effective Visual Impairment: No Limitations Hearing Ability: Normal Carpenter'S Helper Required: No Beliefs That Will Affect Care: None marital status: Current Living Situation: Spouse and Parent Current Living Situation Comment: and parents current occupational status: employed 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 How many Children do You have: 0 Feels Safe at Home: Yes Childhood Exposure to Second-Hand Smoke: No Diet: regular caffeine: Yes during the past year weight has: remained stable Dental Care, Regularly: Yes Physical Activity Frequency: Daily Physical Activity Frequency Comment: work Seatbelt Use: always Sunscreen Use: Yes Assistive Devices: None Review of Systems Review of Systems: All systems reviewed & are unremarkable except as noted in HPI & below Physical Exam Physical Exam: He is laying in bed initially sleeping but easily arousable and cooperative Moderate distress He has negative tension signs bilaterally 5 5 strength bilateral EHL, dorsiflexion , plantarflexion, quadriceps, hamstrings, hip flexors No evidence of any clonus bilaterally. Results & Data Vital Signs (Past 12 Hours) Vital Signs Temp Pulse Resp BP Pulse Ox O2 Del Method 11/28/24 07:29 36.7 C 81 17 138/78 99 Room Air Diagnostic Findings [facility], [place] [phone] CT Scan Report Patient: COLLEEN WALKER Admit Date: 11/27/24 MR#: [id number] Address1: [address] [place] [address] Acct ID:[id number] Address2: Date: 1995 [facility] Zip: [place] [address] Age: 29 Location: ED Sex: M Room/Bed: Att Phy: Diagnosis: LOW BACK PAIN Patsy Phy: Michael Childers CRNP Service Date: 11/27/24 Fam Phy: Interpreting Phy: Manpreet LoyolaAdmit Phy: Ordering Phy: Myranda Gómez DO cc: ~ ABDOMEN AND PELVIS CT WITH IV CONTRAST; CT LUMBAR SPINE WITH IV CONTRAST CT DOSE: 1485.96 mGy.cm HISTORY: Acute pain in the right flank and low back. Sided partial nephrectomy back pain, hx RCC TECHNIQUE: Multiaxial CT images of the abdomen, pelvis and lumbar spine were performed following the IV administration of 94 cc of Optiray, A dose lowering technique was utilized adhering to the principles of ALARA. COMPARISON STUDY: Lumbar spine radiographs of same day, CT abdomen and pelvis 09/01/2023 FINDINGS: CT ABDOMEN/PELVIS: Mild dependent subsegmental bibasilar atelectasis. There is no pneumatosis or pneumoperitoneum. Unremarkable spleen, pancreas, gallbladder, adrenal glands and liver. There is patency of the hepatic and portal veins. Subcentimeter calcification of the hepatic dome. Partial nephrectomy changes of the superior pole right kidney are again noted. No urolith or hydronephrosis. Unremarkable urinary bladder. The aorta and IVC are within normal limits. No lymphadenopathy. No bowel obstruction or bowel wall thickening. Noninflamed appendix. NO ACUTE FRACTURE. CT LUMBAR SPINE: No acute fracture, subluxation, osseous erosion or marrow replacing process. L2-L3: Tiny posterior annular disc bulge. No central canal or foraminal narrowing. L3-L4: 1.3 x 0.6 x 1.8 cm left paracentral/left lateral recess disc extrusion. Moderate central canal and left lateral recess narrowing. Mild bilateral foraminal stenosis. L4-L5: Small posterior annular disc bulge with ligamentum flavum thickening and mild to moderate facet arthrosis. Mild central canal and bilateral foraminal narrowing. L5-S1: Small posterior annular disc bulge with [id number] facet arthrosis. No central canal or foraminal narrowing. IMPRESSION: 1. No acute intra-abdominal or intrapelvic abnormality. 2. Right partial nephrectomy changes redemonstrated. 3. No lymphadenopathy or evidence of metastatic disease. 4. Annular disc bulging of the lumbar spine, most pronounced at L3-L4 where there is a left paracentral/left lateral recess disc extrusion. ACT 112: Negative or not required by law. The above report was generated using voice recognition software. It may contain grammatical, syntax or spelling errors. Electronically signed by: Manpreet Loyola M.D. 11/27/2024 2:32 PM Dictated: 11/27/24 1423 Transcribed: 11/27/24 1423
--- NOTE | 2024-11-28 12:21 | Hospitalist Progress Note ---
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 He presented on 11/27 for acute onset low back pain while he was at work. He was reportedly holding a heavy machine (30-40 lb) and when he stood up, he heard a "pop" and felt immediate pain localized to his central lower back. He tried to rest after this, but it continued to worsen and it became difficult to walk. No radiating symptoms to his hips, buttocks, lower extremities, or abdomen. No paresthesias in his lower extremities or genital region. No urinary incontinence. Lumbar CT revealed annular disc bulging of the lumbar spine, most pronounced at L3-L4 where there is a left paracentral/left lateral recess disc extrusion. #Lumbar disc herniation Pain regimen: Scheduled Tylenol 1,000 mg Q8H, oxycodone 5 mg Q6H PRN moderate pain, Toradol 15 mg IV Q6H PRN moderate pain, Morphine 4 mg IV Q4H PRN severe pain Continue Lidocaine patch to lumbar spine Start Valium 2 mg TID PRN muscle spasms PT/OT consulted Ortho spine consulted, MRI pending #History of chromophobe RCC, s/p right partial nephrectomy - follows with [facility], Dr. Pereyra CT A/P with no acute intra-abdominal or intrapelvic abnormality. No lymphadenopathy or evidence of metastatic disease Cr on admission at baseline of 0.9 Cautious use of NSAIDs given history of partial nephrectomy #Class II Obesity Elevated non-fasting BSG Check A1c with AM labs #GERD Previously took Protonix, however has not had a prescription for months and has been asymptomatic Will provide Protonix 40 mg daily while hospitalized #IBS-C - follows [facility] Continue Linzess 72 mcg daily VTE PPx: low risk. Add if prolonged inpatient stay CODE STATUS: Full code Admission and Anticipated Discharge Date Admission Date: November 27, 2024 Supervising Physician Co-Signing Physician Notes ATTESTATION I also saw the patient and confirmed zarate portions of the history and exam. I agree with the impression and plan in the resident documentation, and as summarized below. The patient is seen mid morning. Still with pain; reasonable at rest, but movement leads to sharp increase in pain. Pain located midline, just above belt line, with some radiation to right buttocks. EXAM VSS CV RRR Lungs CTA Neurological exam deferred this morning DATA Labs WBC 11.98 Imaging MRI L3-L4 disc extrusion with moderate central canal stenosis IMPRESSION & PLAN Lumbar disc herniation S/P right partial nephrectomy for RCC Continue pain management; received Decadron 10 mg in the ED Appreciate ortho-spine evaluation, pending PT/OT Additional per resident documentation Subjective Patient seen and evaluated at bedside this morning. No acute events overnight. Still with significant pain. Has been able to ambulate to the bathroom. Review of Systems Review of Systems: reviewed, per HPI Physical Exam Physical Exam: Constitutional: laying in bed, obvious discomfort HEENT: NCAT, no conjunctival injection CV: extremities well-perfused, no LE edema Resp: no increased work of breathing GI: nondistended MSK: no gross deformities appreciated Skin: warm, dry, no rash appreciated Neuro: alert, oriented, no focal neurologic deficit appreciated Results & Data Results & Data Vital Signs (Past 12 Hours) Vital Signs Temp Pulse Resp BP Pulse Ox O2 Del Method 11/28/24 07:29 36.7 C 81 17 138/78 99 Room Air Resident Activity Tracking Resident Involvement: Resident Care Provided Care Provided: Adult Hospital Medicine
--- NOTE | 2024-11-28 13:10 | Magnetic Resonance Report ---
MR lumbar spine wo con CLINICAL HISTORY: 29 years-old Male with LBP; eval disc herniation L3-4. Clinical back pain COMPARISON: CT 11/27/2024 TECHNIQUE: Multiplanar, multi sequence MRI of the lumbar spine was performed without intravenous cont rast. FINDINGS: The lumbar alignment is normal. The vertebral body heights are normal. Mild nonspecific marrow venancio a involves the left greater than right sacral ala. The conus terminates at L1. The visualized spina l cord and cauda equina are normal. There is no paraspinal edema, mass, or prevertebral fluid collec tion. The intra-abdominal structures are grossly unremarkable. T12-L1: Normal. L1-L2: Normal. L2-L3: Mild intervertebral disc space narrowing. Tiny posterior annular disc bulge. No central canal or foraminal narrowing. L3-L4: Mild intervertebral disc space narrowing. 1.3 x 0.6 x 1.8 cm left paracentral/left lateral rec ess disc extrusion again seen. Moderate central canal and left lateral recess narrowing. AP dimension of the thecal sac measures 7 mm. Abutment and posterior displacement of the left L4 nerve root. Mild inferior bilateral foraminal stenosis. L4-L5: Small posterior annular disc bulge with ligamentum flavum thickening and mild to moderate face t arthrosis. There is no significant central canal or foraminal narrowing. L5-S1: Small posterior annular disc bulge with xnow-we-xuogkveh facet arthrosis. No central canal or foraminal narrowing. IMPRESSION: 1. Redemonstration of a left paracentral/left lateral recess disc extrusion at L3-L4 causing moderate central canal stenosis with mild inferior bilateral foraminal narrowing. 2. Small posterior annular disc bulge at L2-L3. 3. No acute fracture. ACT 112: Negative or not required by law. The above report was generated using voice recognition software. It may contain grammatical, syntax o r spelling errors. Electronically signed by: Manpreet Loyola M.D. 11/28/2024 1:08 PM
[2024-11-29] MEDS: KETOROLAC TROMETHAMINE 15 MG/ML VIAL IV PRN (02:50)
--- NOTE | 2024-11-29 08:07 | Pain Management Consultation ---
Date of Consultation November 29, 2024 Assessment & Plan (1) Acute low back pain: Back pain laterality: bilateral Sciatica presence: without sciatica Qualified Code(s): M54.50 - Low back pain, unspecified (2) Lumbar disc herniation: Plan 1. Patient with acute onset of low back pain 48 hours ago with associated work- related injury with MRI revealing a left paracentral/left lateral disc extrusion at L3-4 causing moderate central canal and left lateral recess narrowing with abutment and posterior displacement left L4 nerve root although no radiculopathy at this time. Management was discussed. 2. Recommend initiating a Medrol Dosepak-order placed 3. Will initiate baclofen 10 mg 3 times daily due to myofascial spasm in the lumbar region 4. Patient may continue with his as needed pain medications without change 5. Would consider lumbar MARIANA in the outpatient setting with failure to respond to conservative management or should he develop a radicular pattern to his pain complaint. Thanks for allowing us to participate in the care of this patient. History of Present Illness Reason for Consultation: Intractable axial low back pain Requesting Physician: Awa Tavarez PA-C Attending Physician: Antony Schwartz DO History of Present Illness Mr. Haque is a 29-year-old white male who was admitted for acute onset of axial low back pain. He reported an injury while on the job 2 days ago on 11/27/2024. 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 This led to emergent evaluation and admission. The patient reports frequent heavy lifting throughout his work career. He describes the pain as sharp, shooting and dull aching. His dull aching is present while lying still and the sharp shooting pain occurs with any movement. He is denying any radicular pattern to this pain at this time. He denies numbness or tingling in the lower extremities, weaknesses, footdrop or falling. He denies bowel/bladder incontinence or saddle anesthesia. Patient did feel some tingling in the tip of his penis last evening but has not been persistent. Patient rates his pain a 2-3/10 at its best while lying supine and still but can escalate to an 8/10 with movement. Patient has no further constitutional complaints. Plan of care discussed with Dr. Cindy Diaz. Pain Assessment Full Body Front + Back: 2 1. Axial low back pain Pain scale - at its best (0-10): 2 Pain scale - at its worst (0-10): 8 Allergies Allergy/AdvReac Type Severity Reaction Status Date / Time No Known Allergies Allergy Verified 08/16/24 08:00 Home Medications Medication Instructions Recorded Confirmed Type scopolamine base 1 mg over 3 days 1 patch transdermal Q3D PRN nausea 02/24/24 11/27/24 Rx transdermal patch and vomiting #4 ea linaclotide 72 mcg capsule 72 mcg PO DAILY #90 caps 08/15/24 11/27/24 Rx (Linzess) dicyclomine 10 mg capsule 10 mg PO UD 11/27/24 11/27/24 History gabapentin 100 mg capsule 100 mg PO TID #30 caps 11/27/24 Rx methocarbamol 750 mg tablet 750 mg PO Q8H #30 tabs 11/27/24 Rx oxycodone 5 mg tablet 5 mg PO Q8H PRN pain #10 tabs 11/27/24 Rx Pain History Pain Intensity Pain scale - at its best (0-10): 2 Pain scale - at its worst (0-10): 8 Patient History Medical History Migraine History of COVID-19 tested 08/05/20 at [facility] --> loss of smell and taste, mild sob for 1 day. no other symptoms. no hospitalization. no problems currently. Gastritis Asthma as a child -- no problems currently. Surgical History History of partial nephrectomy (~09/26/20) right robotic lap partial nephrectomy History of esophagogastroduodenoscopy (EGD) H/O colonoscopy (~2015) Dr. Espinal at [facility] [place] teeth extracted Family History Father Pancreatic cancer Other No family history of adverse response to anesthesia Denies family history of Crohn's disease Colorectal cancer Ulcerative colitis Social History Smoking Status: Never smoker Age Started Using Tobacco: 15; Age Quit Using Tobacco: 23; packs per day: 0.5; Second Hand Exposure: No; Do You Dip or Chew Tobacco: No; Hx Alcohol Use: Yes (social) Alcohol type: beer Alcohol Intake Frequency: Monthly or Less Hx Substance Use: Yes (medical marijuana) Prescribed Medications: Marijuana Preferred Language: Nigerien Communication Ability: Effective Visual Impairment: No Limitations Hearing Ability: Normal Locker Room Clerk Required: No Beliefs That Will Affect Care: None marital status: Current Living Situation: Spouse and Parent Current Living Situation Comment: and parents current occupational status: employed 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 Speech and thought process appropriate. Mood and affect appropriate. Cognition intact. Head: Normocephalic and atraumatic. ENT: No evidence of nasal or oral mucosal lesions. Mucous membranes are moist. Eyes: Pupils equal round reactive to light. Neck: Supple without adenopathy and full range of motion. Abdomen: Soft and nondistended. No organomegaly. Bowel sounds active. Back/spine: Patient able to logroll towards his left side for physical examination. Loss of lumbar lordosis. No focal midline or facet joint tenderness. He is tender in the lumbar paravertebral musculature bilaterally in the mid lumbar region. There is spasm appreciated. Lower extremities: SLR increased axial low back pain bilaterally without radiculopathy. Strength testing was 5/5 with dorsiflexion, plantarflexion, EHL testing and hip flexion/extension. There was some hesitation with hip flexion extension due to increased axial pain. DTRs were 2+ at L4 and equal bilaterally. Sensation was intact without deficit to sharp and dull. Neurologic: Cranial nerves grossly intact. Ambulatory function not witnessed. Results (Pain Clinic) Diagnostic Review MRI Findings: [facility], [place] [phone] Magnetic Resonance Report Patient: COLLEEN HAQUE Admit Date: 11/27/24 MR#: [id number] Address1: [address] [place] [address] Acct ID:[id number] Address2: Date: 1995 [facility] Zip: [place] [address] Age: 29 Location: 3N Sex: M Room/Bed: N377-2 Att Phy: Antony Schwartz D.O. Diagnosis: L3-L4 DISC EXTRUSION Patsy Phy: Michael Childers CRNP Service Date: 11/28/24 Fam Phy: Interpreting Phy: Manpreet LoyolaAdmit Phy: Marc Singh D.O. Ordering Phy: Awa Tavarez cc: ~ MR lumbar spine wo con CLINICAL HISTORY: 29 years-old Male with LBP; eval disc herniation L3-4. Clinical back pain COMPARISON: CT 11/27/2024 TECHNIQUE: Multiplanar, multi sequence MRI of the lumbar spine was performed without intravenous contrast. FINDINGS: The lumbar alignment is normal. The vertebral body heights are normal. Mild nonspecific marrow edema involves the left greater than right sacral ala. The conus terminates at L1. The visualized spinal cord and cauda equina are normal. There is no paraspinal edema, mass, or prevertebral fluid collection. The intra-abdominal structures are grossly unremarkable. T12-L1: Normal. L1-L2: Normal. L2-L3: Mild intervertebral disc space narrowing. Tiny posterior annular disc bulge. No central canal or foraminal narrowing. L3-L4: Mild intervertebral disc space narrowing. 1.3 x 0.6 x 1.8 cm left paracentral/left lateral recess disc extrusion again seen. Moderate central canal and left lateral recess narrowing. AP dimension of the thecal sac measures 7 mm. Abutment and posterior displacement of the left L4 nerve root. Mild inferior bilateral foraminal stenosis. L4-L5: Small posterior annular disc bulge with ligamentum flavum thickening and mild to moderate facet arthrosis. There is no significant central canal or foraminal narrowing. L5-S1: Small posterior annular disc bulge with [id number] facet arthrosis. No central canal or foraminal narrowing. IMPRESSION: 1. Redemonstration of a left paracentral/left lateral recess disc extrusion at L3-L4 causing moderate central canal stenosis with mild inferior bilateral foraminal narrowing. 2. Small posterior annular disc bulge at L2-L3. 3. No acute fracture. ACT 112: Negative or not required by law. The above report was generated using voice recognition software. It may contain grammatical, syntax or spelling errors. Electronically signed by: Manpreet Loyola M.D. 11/28/2024 1:08 PM Dictated: 11/28/24 1304 Transcribed: 11/28/24 1304 Previous Records Review Previous Records: personally reviewed by me
[2024-11-29] MEDS ORDERED: methylPREDNISolone 4 MG TAB, 6 DAY TAPER PO SCH (08:15)
[2024-11-29] MEDS: BACLOFEN 10 MG TAB PO SCH (09:10)
[2024-11-29] MEDS: methylPREDNISolone 4 MG TAB PO SCH ×2 (09:11→13:12)
--- NOTE | 2024-11-29 09:45 | Orthopedic Progress Note ---
Date of Service November 29, 2024 Assessment & Plan (1) Acute low back pain: Plan: He has a small acute L3-4 on the left disc herniation. I would not suggest surgical intervention. He has no radicular component to this. This should heal. Continue with conservative treatment. May need follow-up with pain management as an outpatient for an injection. Ambulate ad jessica. Admission and Anticipated Discharge Date Admission Date: November 27, 2024 Subjective Pill patient still complains of back pain. He has no radicular symptoms. He has been up and ambulatory to the restroom. Pain management saw the patient this morning and recommended a Medrol Dosepak as well as baclofen for spasms. There is also consideration for lumbar injection as an outpatient if he fails this conservative treatment. Review of Systems Review of Systems: All systems reviewed & are unremarkable except as noted in HPI & below Physical Exam Physical Exam: Unchanged moderate distress Alert and oriented x 3 strength intact bilateral lower extremities Results & Data Vital Signs (Past 12 Hours) Vital Signs Temp Pulse Resp BP Pulse Ox O2 Del Method 11/29/24 07:00 36.4 C L 58 L 16 111/71 97 Room Air Diagnostic Findings [place], [place] [phone] Magnetic Resonance Report Patient: COLLEEN WALKER Admit Date: 11/27/24 MR#: [id number] Address1: [address] [place] [address] Acct ID:[id number] Address2: Date: 1995 [facility] Zip: [place] [address] Age: 29 Location: 3N Sex: M Room/Bed: [facility] Att Phy: Antony Schwartz D.O. Diagnosis: L3-L4 DISC EXTRUSION Patsy Phy: Michael Childers CRNP Service Date: 11/28/24 Fam Phy: Interpreting Phy: Manpreet LoyolaAdmrita Phy: Marc Singh D.O. Ordering Phy: Awa Tavarez cc: ~ MR lumbar spine wo con CLINICAL HISTORY: 29 years-old Male with LBP; eval disc herniation L3-4. Clinical back pain COMPARISON: CT 11/27/2024 TECHNIQUE: Multiplanar, multi sequence MRI of the lumbar spine was performed without intravenous contrast. FINDINGS: The lumbar alignment is normal. The vertebral body heights are normal. Mild nonspecific marrow edema involves the left greater than right sacral ala. The conus terminates at L1. The visualized spinal cord and cauda equina are normal. There is no paraspinal edema, mass, or prevertebral fluid collection. The intra-abdominal structures are grossly unremarkable. T12-L1: Normal. L1-L2: Normal. L2-L3: Mild intervertebral disc space narrowing. Tiny posterior annular disc bulge. No central canal or foraminal narrowing. L3-L4: Mild intervertebral disc space narrowing. 1.3 x 0.6 x 1.8 cm left paracentral/left lateral recess disc extrusion again seen. Moderate central canal and left lateral recess narrowing. AP dimension of the thecal sac measures 7 mm. Abutment and posterior displacement of the left L4 nerve root. Mild inferior bilateral foraminal stenosis. L4-L5: Small posterior annular disc bulge with ligamentum flavum thickening and mild to moderate facet arthrosis. There is no significant central canal or foraminal narrowing. L5-S1: Small posterior annular disc bulge with [id number] facet arthrosis. No central canal or foraminal narrowing. IMPRESSION: 1. Redemonstration of a left paracentral/left lateral recess disc extrusion at L3-L4 causing moderate central canal stenosis with mild inferior bilateral foraminal narrowing. 2. Small posterior annular disc bulge at L2-L3. 3. No acute fracture. ACT 112: Negative or not required by law. The above report was generated using voice recognition software. It may contain grammatical, syntax or spelling errors. Electronically signed by: Manpreet Loyola M.D. 11/28/2024 1:08 PM Dictated: 11/28/24 1304 Transcribed: 11/28/24 1304 (1) Acute low back pain Back pain laterality: bilateral Sciatica presence: without sciatica Qualified Code(s): M54.50 - Low back pain, unspecified
--- NOTE | 2024-11-29 12:43 | Hospitalist Progress Note ---
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 He presented on 11/27 for acute onset low back pain while he was at work. He was reportedly holding a heavy machine (30-40 lb) and when he stood up, he heard a "pop" and felt immediate pain localized to his central lower back. He tried to rest after this, but it continued to worsen and it became difficult to walk. No radiating symptoms to his hips, buttocks, lower extremities, or abdomen. No paresthesias in his lower extremities or genital region. No urinary incontinence. Lumbar CT revealed annular disc bulging of the lumbar spine, most pronounced at L3-L4 where there is a left paracentral/left lateral recess disc extrusion. #Lumbar disc herniation Pain regimen: Scheduled Tylenol 1,000 mg Q8H, oxycodone 5 mg Q6H PRN moderate pain, Toradol 15 mg IV Q6H PRN moderate pain, Morphine 4 mg IV Q4H PRN severe pain Continue Lidocaine patch to lumbar spine Start Valium 2 mg TID PRN muscle spasms PT/OT consulted Ortho spine consulted - no surgical intervention Pain management - Medrol dose pack, baclofen, continue pain regimen, consider steroid injection if failing regimen #History of chromophobe RCC, s/p right partial nephrectomy - follows with [facility], Dr. Pereyra CT A/P with no acute intra-abdominal or intrapelvic abnormality. No lymphadenopathy or evidence of metastatic disease Cr on admission at baseline of 0.9 Cautious use of NSAIDs given history of partial nephrectomy #Class II Obesity Elevated non-fasting BSG Check A1c with AM labs #GERD Previously took Protonix, however has not had a prescription for months and has been asymptomatic Will provide Protonix 40 mg daily while hospitalized #IBS-C - follows with [facility] Continue Linzess 72 mcg daily VTE PPx: low risk. Add if prolonged inpatient stay CODE STATUS: Full code Admission and Anticipated Discharge Date Admission Date: November 27, 2024 Supervising Physician Co-Signing Physician Notes ATTESTATION I also saw the patient and confirmed zarate portions of the history and exam. I agree with the impression and plan in the resident documentation, and as summarized below. Was OOB to [facility] but considerable pain in transfer. Lives on second story - once he gets there, everything on one floor. He is unsure he would be able to get up the stairs to his apartment. EXAM VSS CV RRR Lungs CTA Neurological exam deferred this morning IMPRESSION & PLAN Lumbar disc herniation S/P right partial nephrectomy for RCC This is going to take some time to heal; no indications for surgery. I do not think he is able to be discharged today, as I doubt he would be able to make it up his stairs. Will have PT work with him again later today. He received Decadron 10 mg in the ED upon presentation; will start Medrol dose pack today Continue baclofen Has oxycodone for PRN use Additional per resident documentation Subjective Patient seen and evaluated at bedside this morning. No acute events overnight. Seen by ortho spine who are not recommending surgical intervention. Pain management recommends Medrol dose pack, baclofen, continue pain meds. Lives in 3 story home and resides on the second floor. Review of Systems Review of Systems: reviewed, per HPI Physical Exam Physical Exam: Constitutional: laying in bed, obvious discomfort HEENT: NCAT, no conjunctival injection CV: extremities well-perfused, no LE edema Resp: no increased work of breathing GI: nondistended MSK: no gross deformities appreciated Skin: warm, dry, no rash appreciated Neuro: alert, oriented, no focal neurologic deficit appreciated Results & Data Results & Data Vital Signs (Past 12 Hours) Vital Signs Temp Pulse Resp BP Pulse Ox O2 Del Method 11/29/24 07:00 36.4 C L 58 L 16 111/71 97 Room Air Resident Activity Tracking Resident Involvement: Resident Care Provided Care Provided: Adult Hospital Medicine
[2024-11-29] MEDS ORDERED: methylPREDNISolone 4 MG TAB PO SCH (21:00)
[2024-11-30] MEDS: methylPREDNISolone 4 MG TAB PO SCH (06:02)
[2024-11-30 07:03] VITALS: RESP 16; TEMP 97.9
[2024-11-30 14:43] VITALS: BP 124/74; PULSE 65; O2SAT 98
[2024-11-30] MEDS ORDERED: methylPREDNISolone 4 MG TAB PO SCH (21:00)
[2024-12-01] MEDS ORDERED: methylPREDNISolone 4 MG TAB PO SCH (07:00)
--- NOTE | 2024-12-01 19:03 | Discharge Summary ---
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 He presented on 11/27 for acute onset low back pain while he was at work. He was reportedly holding a heavy machine (30-40 lb) and when he stood up, he heard a "pop" and felt immediate pain localized to his central lower back. He tried to rest after this, but it continued to worsen and it became difficult to walk. He currently rates his pain 3/10 when lying at rest, but 8/10 with movement including transferring to sit or stand, ambulating, or prolonged standing. No radiating symptoms to his hips, buttocks, lower extremities, or abdomen. No paresthesias in his lower extremities or genital region. No urinary incontinence. Vital signs stable, labs unremarkable. Lumbar CT revealed annular disc bulging of the lumbar spine, most pronounced at L3-L4 where there is a left paracentral/left lateral recess disc extrusion. No recent changes in his home medications. When asked about his history of lower back pain and bilateral knee pain, he reports the lower back pain is totally different than what is he experiencing now and his LBP in the past was secondary to constipation. 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 He wishes to be a full code. Admission Exam Per Admitting Provider General: No acute distress, nondiaphoretic, well-developed, well-nourished. Skin: The skin was without rashes, erythema, edema, or bruising. Cardiac: Regular rate and rhythm without murmurs gallops or rubs. Pulm: Clear to auscultation bilaterally without wheezes, rales or rhonchi. Normal respiratory effort. 97% on room air. Abdominal: Positive bowel sounds x 4. Soft, nontender, without masses or organomegaly. No guarding or rebound tenderness. Neuro: A&O x3. No focal neurological deficits. MSK: LE active and passive ROM normal though elicits pain. Straight leg raise negative for radicular symptoms; pain localized to lumbar region only. Normal sensation of LE bilaterally. Deferred gait testing and lumbar spine palpation per patient's request. Principal Diagnosis Lumbar disc herniation Discharge Exam Constitutional: laying in bed, obvious discomfort HEENT: NCAT, no conjunctival injection CV: extremities well-perfused, no LE edema Resp: no increased work of breathing GI: nondistended MSK: no gross deformities appreciated Skin: warm, dry, no rash appreciated Neuro: alert, oriented, no focal neurologic deficit appreciated Discharge Data Allergies Allergy/AdvReac Type Severity Reaction Status Date / Time No Known Allergies Allergy Verified 08/16/24 08:00 Consultations 11/28/24 07:53 Consult Orthopedic Spine Surgery Routine 11/28/24 14:54 Consult Pain Management Routine Ordered Studies 11/27/24 13:25 CT abd pelvis IV con only Stat CT lumbar spine w con Stat 11/28/24 11:54 MR lumbar spine wo con Routine Hospital Course (1) Lumbar disc herniation: (2) History of partial nephrectomy: (3) GERD (gastroesophageal reflux disease): (4) Irritable bowel syndrome with constipation: Plan Patient is a 29 year old male with past medical history of chromophobe renal cell carcinoma: s/p right robotic partial nephrectomy September 2020, IBS-C, GERD. He presented on 11/27 for acute onset low back pain while he was at work. He was reportedly holding a heavy machine (30-40 lb) and when he stood up, he heard a "pop" and felt immediate pain localized to his central lower back. He tried to rest after this, but it continued to worsen and it became difficult to walk. No radiating symptoms to his hips, buttocks, lower extremities, or abdomen. No paresthesias in his lower extremities or genital region. No urinary incontinence. Lumbar CT revealed annular disc bulging of the lumbar spine, most pronounced at L3-L4 where there is a left paracentral/left lateral recess disc extrusion. #Lumbar disc herniation Pain regimen: Scheduled Tylenol 1,000 mg Q8H, oxycodone 5 mg Q6H PRN moderate pain, Toradol 15 mg IV Q6H PRN moderate pain, Morphine 4 mg IV Q4H PRN severe pain Continue Lidocaine patch to lumbar spine Start Valium 2 mg TID PRN muscle spasms PT/OT consulted Ortho spine consulted - no surgical intervention Pain management - Medrol dose pack, baclofen, continue pain regimen, consider steroid injection if failing regimen #History of chromophobe RCC, s/p right partial nephrectomy - follows with [facility], Dr. Roddy CT A/P with no acute intra-abdominal or intrapelvic abnormality. No lymphadenopathy or evidence of metastatic disease Cr on admission at baseline of 0.9 Cautious use of NSAIDs given history of partial nephrectomy #Class II Obesity Elevated non-fasting BSG Check A1c with AM labs #GERD Previously took Protonix, however has not had a prescription for months and has been asymptomatic Will provide Protonix 40 mg daily while hospitalized #IBS-C - follows with [facility] Continue Linzess 72 mcg daily VTE PPx: low risk. Add if prolonged inpatient stay CODE STATUS: Full code Total Time Total Time Spent Total Time Spent (In Minutes): Antony Henry DO, attending physician, spent 25 minutes myself seeing the patient, reviewing the chart, and documenting today. Discharge Plan Discharge Items Patient Disposition: Home - Self-Care Reason For Visit: L3-L4 DISC EXTRUSION Discharge Diagnosis: L3-L4 Disc Extrusion Activity: Resume your previous activity Activity Comment: as tolerated Lifting: No more than 5 pounds Non-emergency contact: Primary Care Provider Call non-emergency contact if: you have any medication questions, your symptoms worsen and your pain is worsening Follow-up/Referrals: Michael Childers CRNP [Primary Care Provider] - 12/04/24 10:20 am Cindy Diaz DO [Physician] - Diet: Regular Addtl Attending Provider Instructions: You were admitted to the hospital for back pain. You underwent CT scan and MRI of your lower back that showed a bulging disc between your L3 and L4 vertebrae. . You were treated with steroids, pain medication, and muscle relaxers. You were evaluated by the spine surgery team and it was determined that you do not need surgery at this time. Pain management also evaluated you and made some recommendations. You should follow up with them as an outpatient in the future. We will send medications as outlined below to your pharmacy. When you return home it is important to slowly ease back into activity. Until you are evaluated by your primary care physician or pain management, you should not lift anything heavier than 5 lbs. A discharge summary will be sent to your primary care physician to ensure continuity of care. Please bring this discharge summary with you to your next office appointment so that your provider can review it at that time. Follow-up appointments: Make a follow-up appointment with your PCP within the next week. It is very important that you follow up with them shortly after discharge from the hospital. Make a follow-up appointment with Pain Management. A referral has been provided. The office number is: Keep all your follow-up appointments as already scheduled. If you cannot make an appointment, notify your provider. Medications: Your medication list has been reviewed and reconciled upon discharge to ensure accuracy and continuity of care. An updated list of all your medications is included with your hospital discharge paperwork. Please review this list closely, and make note of any changes. We sent a new medication called methylprednisolone to your pharmacy. Take methylprednisolone as instructed. We sent a new medication called Baclofen to your pharmacy. Take baclofen (10mg) 3 times daily as needed for pain. We sent a new medication called oxycodone to your pharmacy. Take oxycodone (5mg) one tablet every 6 hours as needed for pain. You have had a lidocaine patch on your back during your hospital stay. These can be purchased at the pharmacy. Use as directed on the package instructions. If you have any issues filling these prescriptions, please call [phone] and ask to leave a message for Dr. Jaime Juárez. Take your medications as instructed; do not skip a dose of your medicines. Make sure all of your doctors know every medicine you are taking (including [id number]-polrlzs medicines, vitamins, and supplements). Call your primary care provider before taking any new medicines (including mfzr-rdg-aeruvsy medicines, vitamins, and supplements), because some of these may interact with your current medications, or may make your symptoms worse. Tell your primary care provider if you cannot afford your medications. CONTACT YOUR PRIMARY CARE PROVIDER if you experience any of the following: Increased pain Numbness or tingling radiating down your leg Any issues with control of your bowels or bladder Difficulty following your treatment plan, or difficulty taking medications CALL 911 OR GO TO THE EMERGENCY DEPARTMENT if you experience any of the following: Sudden, severe abdominal pain or nausea/vomiting Severe chest pain, or chest pain that radiates (moves) to your jaw or arm Sudden, severe shortness of breath or difficulty breathing Thank you for allowing us to participate in your care. Pending Studies at Discharge: No Stand-Alone Forms: My [facility] Medications and DC Order Prescriptions: New baclofen 10 mg tablet 10 mg PO TID Qty: 60 0RF methylprednisolone [Medrol (Elias)] 4 mg tablets,dose pack See Rx Instructions .ROUTE .COMPLEX Qty: 21 0RF Rx Instructions: 4 mg orally ;Take as instructed on packaging oxycodone 5 mg tablet 5 mg PO Q6H Qty: 20 0RF Continued Linzess 72 mcg capsule 72 mcg PO DAILY Qty: 90 3RF Rx Instructions: last filled 08/16 90 day supply Discontinued scopolamine base 1 mg over 3 days patch 3 day 1 patch transdermal Q3D PRN (Reason: nausea and vomiting) Qty: 4 0RF Rx Instructions: last filled 03/20/24 Discharge Orders: Discharge Order (Routine); Ordered 11/30/24 Ordered By: Jaime Ybarra/Other Patient Handouts: Staff Ed: [employer]ics, Relieving Tension in Your Back, Back Care Every Day Admission Data Admit Date/Time: 11/27/24 17:35 Attending Provider: Antony Schwartz Admit Provider: Marc Singh Primary Care Provider: Michael Childers. Other Providers: Reinaldo Taylor; Jaime Juárez; Cindy Diaz Other Interventions: Discharge Summary Assessment (RN) Last Done: 11/30/24 13:54 Supervising Physician Co-Signing Physician Notes ATTESTATION I also saw the patient and confirmed zarate portions of the history and exam. I agree with the impression and plan in the resident documentation, and as summarized below. Feels as if he can manage at home at this point. We discussed the return to work parameters and follow up. Unfortunately, he has a job that requires some lifting, so will not be able to return to work at full duties. EXAM 124/74, 65, 16 CV RRR Lungs CTA IMPRESSION & PLAN Lumbar disc herniation S/P right partial nephrectomy for RCC Ok for discharge today with plan and medications as outlined above Will need follow up with PCP and/or occupational medicine (he will check with his employer) Discussed general back rehabilitation, including PT and injury prevention Additional per resident documentation Resident Activity Tracking Resident Involvement: Resident Care Provided Care Provided: Adult Hospital Medicine
[2024-12-02] MEDS ORDERED: methylPREDNISolone 4 MG TAB PO SCH (07:00)
[2024-12-03] MEDS ORDERED: methylPREDNISolone 4 MG TAB PO SCH (07:00)
[2024-12-04] MEDS ORDERED: methylPREDNISolone 4 MG TAB PO SCH (07:00)
== END 2024-11-30 16:50 | disposition home or self-care (01) | DRG 552 ==
LOC: ED 09:35 → SUATTDRO 17:35 → 3N 17:35
DX: K21.9 Gastro-esophageal reflux disease without esophagitis; Z68.31 Body mass index [BMI] 31.0-31.9, adult; E66.812 Obesity, class 2; Z85.528 Personal history of other malignant neoplasm of kidney; M48.061 Spinal stenosis, lumbar region without neurogenic claudication; Z90.5 Acquired absence of kidney; K58.1 Irritable bowel syndrome with constipation; X50.0XXA Overexertion from strenuous movement or load, initial encounter; Z79.899 Other long term (current) drug therapy; Z87.891 Personal history of nicotine dependence; J45.909 Unspecified asthma, uncomplicated; Y99.0 Civilian activity done for income or pay; M51.26 Other intervertebral disc displacement, lumbar region